=== PATIENT | male | born 1955 | race Caucasian/White ===

== ENCOUNTER 2022-02-22 09:47 | Outpatient (CLI) | payer MEDICARE, OTHER, SELFPAY ==
[2022-02-22 12:19] LABS: Chloride* 105 mmol/L (96-114)
[2022-02-22 12:20] LABS: Potassium* 5.1 mmol/L (3.6-5.1); Sodium* 140 mmol/L (135-149)
[2022-02-22 12:22] LABS: Cholesterol* 140 mg/dL (90-199); Creatinine* 1.2 mg/dL (0.5-1.5); Estimated Glomerular Filt Rate 66 ml/min
[2022-02-22 12:23] LABS: Blood Urea Nitrogen* 21 mg/dL (7-30); Calcium* 9.3 mg/dL (8.4-10.6); Carbon Dioxide* 31 mmol/L (20-32); Glucose* 108 mg/dL (60-115); Triglycerides* 166 mg/dL (40-149)
[2022-02-22 12:24] LABS: HDL Cholesterol* 42 mg/dL (>=40); LDL Cholesterol Calculated 65 mg/dL (<100)
[2022-02-22 12:54] LABS: PSA Screen* 0.99 ng/mL (0.10-4.00)
== END 2022-02-22 09:48 | disposition home or self-care (01) ==
PROVIDERS: PCP Family Medicine; Visit Provider Family Medicine
DX: E78.5 Hyperlipidemia, unspecified (principal); Z13.1 Encounter for screening for diabetes mellitus; Z12.5 Encounter for screening for malignant neoplasm of prostate
CPT/HCPCS: 80048; 80061; 84153

== ENCOUNTER 2022-04-09 08:34 | Outpatient (CLI) | payer MEDICARE, OTHER, SELFPAY | END 2022-04-09 08:35 | disposition home or self-care (01) | LOC: OP CLINIC 08:35 | PROVIDERS: PCP Family Medicine; Visit Provider Surgery | DX: Z12.11 Encounter for screening for malignant neoplasm of colon (principal); Z86.010 Personal history of colon polyps | CPT/HCPCS: 45378; J2250; J3010 ==

== ENCOUNTER 2023-04-01 08:21 | Outpatient (CLI) | payer MEDICARE, OTHER, SELFPAY | END 2023-04-01 08:22 | disposition home or self-care (01) | PROVIDERS: PCP Family Medicine; Visit Provider Family Medicine | DX: Z00.00 Encounter for general adult medical examination without abnormal findings (principal); E78.2 Mixed hyperlipidemia; Z13.1 Encounter for screening for diabetes mellitus | CPT/HCPCS: 80048; 80061 ==

== ENCOUNTER 2024-06-15 10:41 | Outpatient (CLI) | payer MEDICARE, OTHER, SELFPAY | END 2024-06-15 10:42 | disposition home or self-care (01) | PROVIDERS: PCP Family Medicine; Visit Provider Family Medicine | DX: Z00.00 Encounter for general adult medical examination without abnormal findings (principal); E78.5 Hyperlipidemia, unspecified; D68.51 Activated protein C resistance; R35.1 Nocturia; Z13.1 Encounter for screening for diabetes mellitus; Z12.5 Encounter for screening for malignant neoplasm of prostate | CPT/HCPCS: 80048; 80061; G0103 ==

== ENCOUNTER 2025-01-27 20:54 | Emergency (ER) | payer MEDICARE, OTHER, SELFPAY ==
[2025-01-27] VITALS (47 sets, daily range): BP systolic 117–159; BP diastolic 70–101; PULSE 54–71; RESP 8–26; TEMP 37; O2SAT 93–98; BMI 31.0
--- OUTSIDE RECORDS SUMMARY | 2025-01-27 20:56 | XMS_ITS | Clinical Summary ---
Author Organization [facility] Address [address] [place] [id number] Care Team Providers Care Tare Weigher Name Role Phone Javi Kapoor MD Primary Care Provider [phone] Allergies No known active allergies Medications aspirin enteric coated 81 mg tablet Take 1 tablet by mouth once daily with a meal. 0 1 Active naproxen (ALEVE) 220 mg tabletIndications:p ain Take 220 mg by mouth 2 times daily if needed. Indications: PAIN Active MULTIVITAMIN ORAL Take 1 Tab by mouth once daily. Active fish oil-omega-3 fatty acids (FISH OIL) 1,200-360 mg cap Take 1 capsule by mouth every morning. 0 2 Active famotidine (PEPCID) 20 mg tabletIndications:E sophageal spasm Take 1 tablet by mouth once daily. Please take when you are stressed? 0 2 Active atorvastatin (LIPITOR) 20 mg tabletIndications:M ixed hyperlipidemia TAKE 1 TABLET AT BEDTIME 90 tablet 0 4 Active Active Problems Problem Noted Date Diagnosed Date Sensorineural hearing loss, bilateral 05/06/2019 Gout, unspecified 08/26/2012 Overview (08/26/2012): Uric Acid at upper range of normal; suspect Gout. Aleve for flares; will consider Allopurinol if symptoms recur. Cold intolerance 08/26/2012 Esophageal spasm 05/13/2012 Overview (05/13/2012): Diagnosis of exclusion after Angiogram within normal limits 05/13/2012 LBBB (left bundle branch block) 01/30/2012 Overview (01/30/2012): Noted on recent EKG; negative nuclear stress test. 01/30/2012 Personal history of colonic polyps 08/14/2011 Overview (08/14/2011): Colonoscopy 07/2011 normal repeat in 5 years Factor V Leiden mutation 07/29/2011 Overview (07/29/2011): Diagnosed 06/2011. FH: factor V Leiden deficiency 07/25/2011 Impaired fasting glucose 08/26/2007 Lumbago 08/26/2007 Special screening for malignant neoplasm of pros barker 08/03/2007 Mixed hyperlipidemia 08/03/2007 Overview (01/30/2012): With essentially negative nuclear stress test, will attempt to manage Lipids with diet, exercise. Routine general medical exam ination at a health care facility 08/03/2007 Resolved Problems Problem Noted Date Diagnosed Date Resolved Date Acute coronary syndrome 05/10/201204/27 Immunizations Immunization Administration Dates Next Due COVID-19 vaccine (Moderna 100mcg/0.5mL) PFHONG 11/02/2020,10/06/2020 Influenza, IIV3 (Age >=3 years) 05/13/2012,07/25 Tdap 12/30/2007 Family History Medical History Relation Name Comments Hypertension Brother Thanh Cancer Father Nima Lung to Brain Heart Disease Father Nima Low Cholestero l despite eatin steak every time he could Hypertension Mother Taylor Other Mother Taylor Dementia Other Sister 6 Ani Factor II and V deficiencies Other Sister 7 Wilma Factor II defic iency Relation Name Status Comments Brother Thanh Alive Father Nima (Age 73) Ca Lungs Mother Taylor Alive Sister 1 Ani Eduardo Alive Sister 2 Wilma Alive Sister 3 Ksenia Alive Sister 4 Alan Alive Sister 5 Hortencia Alive Sister 6 Ani Sister 7 Wilma Social History Tobacco Use Types Packs/Day Years Used Date Smoking Tobacco: Never Smokeless Tobacco: Never Tobacco Cessation:Counseling Given: Yes Alcohol Use Standard Drinks/Week Comments Yes 1.7 (1 standard drink = 0.6 oz p ure alcohol) moderate on weekends only Sex and Gender Information Value Date Recorded Sex Assigned at Not on file Legal Sex Male 5:24 AM PUBLIC STENOGRAPHER Gender Identity Not on file Sexual Orientation Not on file Occupation Industry Job Start Date Job End Date [employer] Not on file Not on file Not on file Obstetrics History Last Filed Vital Signs Vital Sign Reading Time Taken Comments Blood Pressure 131/79 08/26/2012 11:01 AM PUBLIC STENOGRAPHER to wer Pulse 55 08/26/2012 11:01 AM PUBLIC STENOGRAPHER Temperature 36.8 C (98.3 F) 08/26/2012 11:01 AM PUBLIC STENOGRAPHER Respiratory Rate 12 05/11/2012 10:00 AM CDT Oxygen Saturation 98% 08/26/2012 11:01 AM PUBLIC STENOGRAPHER Inhaled Oxygen Concentration - - Weight 94.6 kg (208 lb 9.6 oz) 08/26/2012 11:01 AM PUBLIC STENOGRAPHER Height 177.8 cm (5' 10) 05/10/2012 1:50 PM CDT Body Mass Index 29.93 05/10/2012 1:50 PM CDT Plan of Treatment Health Maintenance Due Date Last Done Comments Depression screening for age 12+ 1966 BMI (ht and wt on same day) for age 18+ 1972 Hepatitis C screening for age 18-79 1972 Pneumococcal series for age 50+ (1 of 2 - PCV) 1973 Zoster (shingles) series for age 50+ (1 of 2) 2004 Colonoscopy through age 75 08/14/201608/14, 08/14/2011, 10/14/2007 Lipids for age 45-75 07/08/2017 07/08/2012, 05/11/2012, 01/07/2012, Additional history exists Tetanus booster 12/29/2017 12/30/2007 Medicare Wellness for age 65+ 10/11/2019 COVID-19 vaccine series ( season) 2024 04/18/2022, 05/24/2021, 11/02/2020, Additional history exists Influenza Vaccine (#1) 2025 05/13/2012, 2010 RSV vaccine for adults or (1 - 1-dose 75+ series) 2029 ([place]) Tdap Completed 12/30/2007 Hepatitis B series for 19+ Aged Out N o longer eligible based on patient's age to complete this topic Procedures Procedure Name Priority Date/Time Associated Diagnosis Comments LIPID PANEL W REFLEX MEASURED LDL Routine 07/08/2012 7:29 AM PUBLIC STENOGRAPHER Mixed hyperlipidemia from Last 3 Months or Most Recently Relevant to Health Maintenance Results * (ABNORMAL) LIPID PANEL W REFLEX MEASURED LDL (07/08/2012 7:29 AM PUBLIC STENOGRAPHER) CHOLESTEROL,TOTAL 142 100 - 199 mg/dL 07/08/2012 9:23 AM [facility] TRIGLYCERIDES 115 <150 mg/dL 07/08/2012 9:23 AM [facility] HDL CHOLESTEROL 39(L) >40 mg/dL 2 9:23 AM [facility] NON-HDL CHOLESTEROL 103 <145 mg/dl 07/08/2012 9:23 AM [facility] CHOL/HDL RATIO 3.64 <4.50 07/08/2012 9:23 AM [facility] LDL CHOLESTEROL 80 <=130 mg/dL 07/08/2012 9:23 AM [facility] PATIENT STATUS FASTING 07/08/2012 9:23 AM [facility] Blood specimen (specimen) BLOOD SPECIMEN / Unknown 07/08/2012 7:29 AM PUBLIC STENOGRAPHER 07/08/2012 7:29 AM [facility] Aba Contreras MD CHEMISTRY Final Result Performing Organization Address [facility]/State/[facility] Co de Phone Number [facility] [address] [place] [address] from Last 3 Months or Most Recently Relevant to Health Maintenance Insurance [place] [id number] Advance Directives * Full Code (Latest Code Status on File) Date Activated Date Inactivated Comments 05/10/2012 2:54 PM 05/11/2012 4:58 PM Care Teams Tare Weigher Relationship Specialty Start Date End Date Javi Kapoor MD PCP - General Family Practice 07/07/18
--- NOTE | 2025-01-27 21:12 | CRLHL7_ITS ---
For Patients: As a result of the Cures Act, medical imaging exams and procedure reports are released immediately into your electronic medical record. You may view this report before your referring provider. If you have questions, please contact your health care provider. INDICATION: Syncope TECHNIQUE: Chest radiograph 2 views COMPARISON: 02/28/2017, 05/10/2012 FINDINGS: The sensitivity and specificity of the exam are moderately limited by the patient`s body habitus. Mediastinum: The central pulmonary arteries are near the upper limits of normal in size. The heart silhouette is normal in size and morphology. Lung: Both lungs are unremarkable in appearance with small lung volumes. No sign of pleural effusion seen. No pneumothorax is identified. Bone and Soft tissue: There is a 7 mm density overlying the left apex without interval change. This corresponds to the bottle bone island in the anterior left 2nd rib as seen on prior CT. IMPRESSION: 1. No acute cardiopulmonary disease is seen. Dictated by Ronaldo Potter MD @ 01/27/2025 9:56:07 PM Dictated by: Ronaldo Potter MD @ 01/27/2025 21:56:52 (Electronically Signed)
[2025-01-27 21:20] LABS: Hematocrit 43.6 % (37.0-53.0); Hemoglobin* 14.9 gm/dL (13.5-17.5); Immature Granulocytes Abs Auto 0.02 K/uL (0.00-0.30); Immature Granulocytes Pct Auto 0.3 %; Lymphocytes Absolute Auto 2.50 K/uL (0.90-2.90); Mean Corpuscular HGB Conc 34 gm/dL (32-36); Mean Corpuscular Hemoglobin 31 pg (26-34); Mean Corpuscular Volume 89 fL (80-100); RDW Coefficient of Variation % 13.2 % (11.5-15.5); Red Blood Count 4.88 m/uL (4.30-5.90); White Blood Count* 6.75 K/uL (4.50-11.00)
--- NOTE | 2025-01-27 21:31 | ED_ITS ---
HPI - General Adult General Date Seen: 01/27/25 Chief complaint: Shortness of Breath/Dyspnea Stated complaint: Breathing difficulties, tingling hands Time Seen by Provider: 01/27/25 20:58 Source: patient Mode of arrival: ambulatory Limitations: no limitations History of Present Illness HPI narrative: Patient is a 69-year-old male presenting to the emergency department for shortness of breath and a syncopal episode. He is here with his . She states roughly 15 to 20 minute prior to arrival the patient had episode where he was sitting in his chair insert only flung his head backwards and put his hand to his left upper chest. This went on for about 10-20 seconds and since she believes he lost consciousness. When he came back to he felt very lightheaded and this lasted for about another 10 minutes. He was answering all questions appropriately though at that time. He was feeling short of breath. He still feels mildly short of breath but it is improved. He denies any chest pain at any point throughout all of this. Did not feel lightheaded prior to the episode. No history of this happening before. After he woke back up he started noticing some tingling sensation of his hands and his right face was starting to feel numb and then his left face began to feel numb. He does state the numbness and tingling has since fully resolved. Denies ever having symptoms like this before. No history of blood clots. Denies abdominal pain, weakness, headache, vision changes, diarrhea, constipation. No other concerns noted Related Data Home Medications ?Medication ?Instructions ?Recorded ?Confirmed aspirin 81 mg tablet,delayed 81 mg PO DAILY 04/01/23 0 01/27/25 release multivitamin with minerals 1 tab PO QDAY 04/01/2305/28 (Multiple Vitamin-Minerals tablet) Previous Rx's ?Medication ?Instructions ?Recorded atorvastatin 20 mg tablet See Rx Instructions .Route 1 08/15/23 .COMPLEX #90 tabs allopurinol 100 mg tablet 100 mg PO QDAY #90 tabs 09/21 Allergies Allergy/AdvReac Type Severity Reaction Status Date / Time No Known Allergies Allergy Verified 01/27/25 21:11 Review of Systems Status of ROS: Reports: 10 or more systems reviewed and unremarkable except as noted in History and below [facility] Medical History History of coronary angiogram ?Z98.890 - Other specified postprocedural states (ICD-10) Surgical History H/O umbilical hernia repair ?Z98.890 - Other specified postprocedural states (ICD-10) ?Z87.19 - Personal history of other diseases of the digestive system (ICD-10) S/P bilateral inguinal hernia repair ?Z98.890 - Other specified postprocedural states (ICD-10) ?Z87.19 - Personal history of other diseases of the digestive system (ICD-10) Status post laparoscopic cholecystectomy ?Z90.49 - Acquired absence of other specified parts of digestive tract (ICD- 10) Status post appendectomy ?Z90.49 - Acquired absence of other specified parts of digestive tract (ICD- 10) Social History What is your current living situation?: I presently have a place to live Problems where you live: no known problems In the past 12 months, utilities in danger of being shut off: no In past 12 months, lack of transportation kept you from medical appts, meetings, work, or getting things needed for daily living: no In the past 12 mos, have been you worried that your food would run out before you had money to buy more?: never true In the past 12 mos, the food you bought just didn't last and you didn't have money to buy more?: never true Smoking Status: Never smoker How often does anyone, including family, friends and others, physically hurt you : never How often does anyone, including family, friends and others, insult or talk down to you: never How often does anyone, including family, friends and others, threaten you with harm: never How often does anyone, including family, friends and others, scream or curse at you: never Exam Narrative: Exam Narrative: Const: Well-nourished, Well-developed, in mild distress Eyes: PERRL, no conjunctival injection, and symmetrical lids HENT: Atraumatic external nose and ears. Moist mucous membranes. Neck: Symmetric, trachea midline, No thyromegaly. CVS: RRR, No murmurs or gallops. Peripheral pulses 2+ and equal in all extremities RESP: Unlabored respiratory effort. Clear to auscultation bilaterally. GI: Nontender/Nondistended, No rebound or guarding. MSK:Extremities w/o deformity, Normal Active ROM Skin: Warm, Dry. No rashes or lesions. Neuro: Normal Muscle tone, No focal neurological deficits. NIH stroke scale 0 Psych: Awake, Alert, & Oriented x3. Appropriate mood and affect. Const: Vital Signs, click to edit/add: Vital Signs - 24 hr 01/27/25 21:01 01/27/25 21:02 01/27/25 21:04 Temperature 98.6 F Pulse Rate Pulse Rate [Pulse Oximeter] 66 Pulse Rate [orthos tatic lying] Pulse Rate [orthos tatic sitting] Pulse Rate [orthos tatic standing] Respiratory Rate 26 H 14 12 Blood Pressure 159/101 H Blood Pressure [or thostatic lying] Blood Pressure [or thostatic sitting] Blood Pressure [or thostatic standing ] Pulse Oximetry 95 Oxygen Delivery [facility] Room Air 01/27/25 21:10 01/27/25 21:11 01/27/25 21:15 Temperature Pulse Rate 71 62 Pulse Rate [Pulse Oximeter] Pulse Rate [orthos tatic lying] Pulse Rate [orthos tatic sitting] Pulse Rate [orthos tatic standing] Respiratory Rate 13 10 L Blood Pressure 146/100 H Blood Pressure [or thostatic lying] Blood Pressure [or thostatic sitting] Blood Pressure [or thostatic standing ] Pulse Oximetry 94 95 [facility] 21:20 01/27/25 21:22 01/27/25 21:33 Temperature Pulse Rate 58 L 66 Pulse Rate [Pulse Oximeter] Pulse Rate [orthos tatic lying] Pulse Rate [orthos tatic sitting] Pulse Rate [orthos tatic standing] Respiratory Rate 11 L Blood Pressure 132/81 Blood Pressure [or thostatic lying] Blood Pressure [or thostatic sitting] Blood Pressure [or thostatic standing ] Pulse Oximetry 96 96 95 [facility] 01/27/25 21:34 01/27/25 21:40 01/27/25 21:41 Temperature Pulse Rate 62 64 Pulse Rate [Pulse Oximeter] Pulse Rate [orthos tatic lying] Pulse Rate [orthos tatic sitting] Pulse Rate [orthos tatic standing] Respiratory Rate Blood Pressure 140/77 H 129/72 Blood Pressure [or thostatic lying] Blood Pressure [or thostatic sitting] Blood Pressure [or thostatic standing ] Pulse Oximetry 95 95 94 Oxygen Delivery Me thod 01/27/25 21:45 01/27/25 21:50 01/27/25 21:51 Temperature Pulse Rate 62 61 Pulse Rate [Pulse Oximeter] Pulse Rate [orthos tatic lying] Pulse Rate [orthos tatic sitting] Pulse Rate [orthos tatic standing] Respiratory Rate Blood Pressure 127/72 Blood Pressure [or thostatic lying] Blood Pressure [or thostatic sitting] Blood Pressure [or thostatic standing ] Pulse Oximetry 95 95 95 Oxygen Delivery Ms thod 01/27/25 22:00 01/27/25 22:01 01/27/25 22:02 Temperature Pulse Rate 55 L 59 L 57 L Pulse Rate [Pulse Oximeter] Pulse Rate [orthos tatic lying] Pulse Rate [orthos tatic sitting] Pulse Rate [orthos tatic standing] Respiratory Rate Blood Pressure 133/76 Blood Pressure [or thostatic lying] Blood Pressure [or thostatic sitting] Blood Pressure [or thostatic standing ] Pulse Oximetry 96 93 96 Oxygen Delivery Ms thod 01/27/25 22:10 01/27/25 22:11 01/27/25 22:12 Temperature Pulse Rate 60 54 L Pulse Rate [Pulse Oximeter] Pulse Rate [orthos tatic lying] Pulse Rate [orthos tatic sitting] Pulse Rate [orthos tatic standing] Respiratory Rate Blood Pressure 132/70 Blood Pressure [or thostatic lying] Blood Pressure [or thostatic sitting] Blood Pressure [or thostatic standing ] Pulse Oximetry 96 95 97 Oxygen Delivery Me thod 01/27/25 22:15 01/27/25 22:20 01/27/25 22:21 Temperature Pulse Rate 59 L 60 Pulse Rate [Pulse Oximeter] Pulse Rate [orthos tatic lying] Pulse Rate [orthos tatic sitting] Pulse Rate [orthos tatic standing] Respiratory Rate 10 L 11 L Blood Pressure 133/79 Blood Pressure [or thostatic lying] Blood Pressure [or thostatic sitting] Blood Pressure [or thostatic standing ] Pulse Oximetry 96 97 98 Oxygen Delivery Ms thod 01/27/25 22:22 01/27/25 22:30 01/27/25 22:31 Temperature Pulse Rate 61 57 L 60 Pulse Rate [Pulse Oximeter] Pulse Rate [orthos tatic lying] Pulse Rate [orthos tatic sitting] Pulse Rate [orthos tatic standing] Respiratory Rate 10 L 13 Blood Pressure 131/79 Blood Pressure [or thostatic lying] Blood Pressure [or thostatic sitting] Blood Pressure [or thostatic standing ] Pulse Oximetry 97 95 94 Oxygen Delivery Ms thod 01/27/25 22:38 01/27/25 22:40 01/27/25 22:40 Temperature Pulse Rate 58 L 68 Pulse Rate [Pulse Oximeter] Pulse Rate [orthos tatic lying] 58 L Pulse Rate [orthos tatic sitting] 57 L Pulse Rate [orthos tatic standing] 59 L Respiratory Rate 24 Blood Pressure 133/74 137/78 Blood Pressure [or thostatic lying] 133/74 Blood Pressure [or thostatic sitting] 137/78 Blood Pressure [or thostatic standing ] 158/93 H Pulse Oximetry 96 96 Oxygen Delivery Ms thod 01/27/25 22:41 01/27/25 22:42 01/27/25 22:45 Temperature Pulse Rate 60 63 57 L Pulse Rate [Pulse Oximeter] Pulse Rate [orthos tatic lying] Pulse Rate [orthos tatic sitting] Pulse Rate [orthos tatic standing] Respiratory Rate 10 L 12 13 Blood Pressure 158/93 H Blood Pressure [or thostatic lying] Blood Pressure [or thostatic sitting] Blood Pressure [or thostatic standing ] Pulse Oximetry 96 96 97 [facility] 01/27/25 22:50 01/27/25 22:51 01/27/25 23:00 Temperature Pulse Rate 58 L Pulse Rate [Pulse Oximeter] Pulse Rate [orthos tatic lying] Pulse Rate [orthos tatic sitting] Pulse Rate [orthos tatic standing] Respiratory Rate 12 14 12 Blood Pressure 130/76 Blood Pressure [or thostatic lying] Blood Pressure [or thostatic sitting] Blood Pressure [or thostatic standing ] Pulse Oximetry 95 95 97 Oxygen Delivery Ms thod 01/27/25 23:01 01/27/25 23:10 01/27/25 23:11 Temperature Pulse Rate Pulse Rate [Pulse Oximeter] Pulse Rate [orthos tatic lying] Pulse Rate [orthos tatic sitting] Pulse Rate [orthos tatic standing] Respiratory Rate 12 12 10 L Blood Pressure Blood Pressure [or thostatic lying] Blood Pressure [or thostatic sitting] Blood Pressure [or thostatic standing ] Pulse Oximetry 96 96 94 Oxygen Delivery Me thod 01/27/25 23:20 01/27/25 23:21 Temperature Pulse Rate Pulse Rate [Pulse Oximeter] Pulse Rate [orthos tatic lying] Pulse Rate [orthos tatic sitting] Pulse Rate [orthos tatic standing] Respiratory Rate 14 12 Blood Pressure Blood Pressure [or thostatic lying] Blood Pressure [or thostatic sitting] Blood Pressure [or thostatic standing ] Pulse Oximetry 96 96 Oxygen Delivery Me thod Course Vital Signs Vital signs: Initial Vital Signs Temperature 98.6 F 01/27/25 21:01 Temperature Source Temporal Artery Scan 01/27/25 21:01 Pulse Rate 66 01/27/25 21:01 Pulse Rhythm Regular 01/27/25 21:01 Respiratory Rate 26 H 01/27/25 21:01 Pulse Oximetry 95 01/27/25 21:01 Oxygen Delivery Method Room Air 01/27/25 21:01 Vital Signs Temperature 98.6 F 01/27/25 21:01 Pulse Rate 66 01/27/25 21:01 Respiratory Rate 26 H 01/27/25 21:01 Pulse Oximetry 95 01/27/25 21:01 Oxygen Delivery Method Room Air 01/27/25 21:01 Temperature 98.6 F 01/27/25 21:01 Pulse Rate 58 L 01/27/25 22:51 Respiratory Rate 12 01/27/25 23:21 Blood Pressure 130/76 01/27/25 22:51 Pulse Oximetry 96 01/27/25 23:21 Oxygen Delivery Method Room Air 01/27/25 21:01 Medications Administered Medications: Discontinued Medications Generic Name Dose Route Start Last Admin Trade Name Freq PRN Reason Stop Dose Admin Sodium Chloride 1,000 mls @ 1,000 mls/hr 01/27/25 22:52 01/27/25 22:58 0.9 % Sodium Chloride 1000 Ml IV 01/27/25 23:51 1,000 mls/hr .Q1H SUMIT Administration Medical Decision Making MDM Narrative Medical decision making narrative: Patient is a 69-year-old male with the history of factor 5 Leiden presenting for an episode of syncope. Stroke code was called by nursing staff due to the hand tingling. The symptoms have since resolved. I do not believe this is a stroke as he had bilateral hand tingling and facial numbness. This is a very unlikely to be from a single stroke and would require multiple strokes in the exact same spots of the brain. It does sound like he had syncopal episode. Most likely tingling sensation came from hyperventilation. The numbness and tingling are fully resolved now. Differential includes PE, cardiac abnormalities, electrolyte abnormalities, fainting. Will do a chest x-ray, viral swabs, D- dimer, magnesium, BNP, BMP, CBC, troponin, EKG. Lab work returned showing no acute concerning abnormalities. EKG shows a left bundle branch block and per report this was normal for him. Troponin within normal limits but I will repeat this. Viral swabs are negative. CBC, BMP, magnesium, BNP showed no concerning findings. His D-dimer is 0.56 but age adjusted is within normal limits. Based on my research factor 5 Leiden does not affect the D-dimer and we can use this to safely rule out a blood clot. We did do orthostatic blood pressures and they were normal but he did get lightheaded when he stood up. Went to go speak to them and his does mention he was working outside all day and she is concerned he was getting dehydrated. He states he drink 2 large bottles of water prior to coming to the emergency department. Did give him a L of fluids. After L of fluids his symptoms resolved and he is feeling much better. Repeat troponin within normal limits. At this time is syncope easily could have been from dehydration but I do think a would benefit from a Zio patch. This was ordered. They are agreeable to this plan. There is safe for discharge. Lab Data Labs: Lab Results 01/27/25 01/27/25 01/27/25 Range/Units 21:00 21:12 21:26 WBC 6.75 (4.50-11.00) K/uL RBC 4.88 (4.30-5.90) m/uL Hgb 14.9 (13.5-17.5) gm/dL Hct 43.6 (37.0-53.0) % MCV 89 (80-100) fL MCH 31 (26-34) pg MCHC 34 (32-36) gm/dL RDW Coeff of Laure 13.2 (11.5-15.5) % Plt Count 180 (140-440) K/uL Neut % (Auto) 51.9 (42.0-72.0) % Lymph % (Auto) 37.0 (20-44) % [place] % (Auto) 6.8 (0.0-11.0) % Eos % (Auto) 3.6 (0.0-7.0) % Baso % (Auto) 0.4 (0.0-3.0) % Neut # (Auto) 3.50 (1.7-7.0) K/uL Lymph # (Auto) 2.50 (0.90-2.90) K/uL [place] # (Auto) 0.50 (0.00-0.90) K/UL Eos # (Auto) 0.24 (0.00-0.50) K/uL Baso # (Auto) 0.03 (0.00-0.30) K/uL Abs Immat Gran (auto) 0.02 (0.00-0.30) K/uL Imm/Tot Granulo (auto) 0.3 % D-Dimer Quant (PE/DVT) 0.56 H (0.00-0.50) ug/ml Sodium 140 (135-149) mmol/L Potassium 4.1 (3.6-5.1) mmol/L Chloride 108 (96-114) mmol/L Carbon Dioxide 25 (20-32) mmol/L Anion Gap 7 (7-15) mEq/L BUN 23 (7-30) mg/dL Creatinine 1.2 (0.5-1.5) mg/dL Estimated Creat Clear 57.28 Estimated GFR 65 ml/min Glucose 109 (60-115) mg/dL Calcium 9.0 (8.4-10.6) mg/dL Magnesium 2.1 (1.5-2.6) mg/dL Troponin I < 0.01 (0.01-0.04) ng/mL NT-Pro-B Natriuret Pep < 20 (See Note) pg/mL SARS-CoV-2 (PCR) Negative SARS-CoV-2 (Negative) Influenza Type A (PCR) Negative PCR FLU A (Negative) Influenza Type B (PCR) Negative PCR FLU B (Negative) RSV (PCR) Negative PCR RSV (Negative) POC Troponin I 0.01 (0.01-0.04) ng/ml Imaging Data Chest x-ray: Attestation: I have reviewed the pertinent imaging results. Radiologist's impression: 1. No acute cardiopulmonary disease is seen. Dictated by Ronaldo Potter MD @ 01/27/2025 9:56:07 PM ECG Data Attestation: I personally reviewed and interpreted this ECG as follows: Prior ECG tracings: not available for review Interpretation: Normal sinus rhythm with a rate of 68 beats per minute, left axis deviation, left bundle branch block, normal FL interval, no ST or T-wave abnormalities Discharge Plan Discharge Clinical Impression: Syncope Patient Disposition: Home, Self-Care Condition: Stable Instructions: Syncope (ED) Additional Instructions: I believe You suffered from an episode of syncope, also known as fainting. Is very possible that this was due to dehydration from working outside in the heat all day but I will have you wear a heart monitor for the next 2 weeks to make sure there is no underlying heart arrhythmias. I do recommend follow-up with your primary care provider. Return to emergency department for new or worsening symptoms Prescriptions: No Action atorvastatin 20 mg tablet See Rx Instructions .ROUTE .COMPLEX Qty: 90 3RF Dose Instruction: TAKE ONE TABLET BY MOUTH EVERY EVENING Rx Instructions: TAKE ONE TABLET BY MOUTH EVERY EVENING aspirin 81 mg tablet,delayed release (DR/EC) 81 mg PO DAILY Multiple Vitamin-Minerals Tablet 1 tab PO QDAY allopurinol 100 mg tablet 100 mg PO QDAY Qty: 90 2RF Follow Up/Referrals: Javi Kapoor MD [Primary Care Provider, Family Practice] Stand Alone Forms: [employer] Info Instructions
[2025-01-27 21:36] LABS: Troponin, Point-of-Care* 0.01 ng/ml (0.01-0.04)
[2025-01-27 21:37] LABS: Slide Review Reflex No
[2025-01-27 22:12] LABS: PCR FLU A Negative PCR FLU A (Negative); PCR FLU B Negative PCR FLU B (Negative); PCR RSV Negative PCR RSV (Negative); SARS PCR* Negative SARS-CoV-2 (Negative)
[2025-01-27 22:36] LABS: D Dimer Quantitative* 0.56 ug/ml (0.00-0.50)
[2025-01-27 22:57] LABS: Chloride* 108 mmol/L (96-114); Sodium* 140 mmol/L (135-149)
[2025-01-27 22:58] LABS: Potassium* 4.1 mmol/L (3.6-5.1)
[2025-01-27 23:00] LABS: Blood Urea Nitrogen* 23 mg/dL (7-30); Creatinine* 1.2 mg/dL (0.5-1.5); Est. Creatinine Clearance* 57.28; Estimated Glomerular Filt Rate 65 ml/min
[2025-01-27 23:01] LABS: Anion Gap 7 mEq/L (7-15); Calcium* 9.0 mg/dL (8.4-10.6); Carbon Dioxide* 25 mmol/L (20-32); Glucose* 109 mg/dL (60-115)
[2025-01-27 23:20] LABS: NT Pro B Type NatriureticPept* < 20 pg/mL (See Note)
== END 2025-01-28 00:08 | disposition home or self-care (01) ==
PROVIDERS: Emergency Provider Student in an Organized Health Care Education/Training Program; PCP Family Medicine
DX: R55 Syncope and collapse (principal); R06.02 Shortness of breath; R20.2 Paresthesia of skin; R20.0 Anesthesia of skin
CPT/HCPCS: 36415; 71046; 80048; 83735; 83880; 84484; 85025; 85379; 87631; 93005; 93246; 99284; 99285; 99291; J7030

== ENCOUNTER 2025-06-24 17:41 | Observation (INO) | payer MEDICARE, OTHER, SELFPAY ==
[2025-06-24] VITALS (22 sets, daily range): BP systolic 118–167; BP diastolic 62–107; PULSE 69–90; RESP 5–18; TEMP 36.5–36.8; O2SAT 95–99; BMI 31.9; BMI 33.9; BMI 34.0
--- OUTSIDE RECORDS SUMMARY | 2025-06-24 17:43 | XMS_ITS | Clinical Summary ---
Author Organization [facility] Address [address] [place] [id number] Care Team Providers Care Vault Service Mechanic Name Role Phone Javi Kapoor MD Primary Care Provider [phone] Allergies No known active allergies Medications aspirin [...] Date Resolved Date Acute coronary syndrome 05/10/201204/27 Encounters Date Type Department Care Team Description 04/04/2025 Telephone [facility] [address] [place] [address] Integration Aide, Son[facility] Hearing Aid from Last 3 Months Immunizations Immunization Administration Dates Next Due COVID-19 [...] Lungs Mother Taylor Alive Sister 1 Ani Willows Alive Sister 2 Wilma Alive Sister 3 [...] on file Legal Sex Male 5:24 AM [employer]FORMER BU[employer]DER Gender Identity Not on file Sexual Orientation Not on file Occupation Industry Job Start Date Job End Date [employer] Not on file Not on file Not on file Obstetrics History Last Filed Vital Signs Vital Sign Reading Time Taken Comments Blood Pressure 131/79 08/26/2012 11:01 AM TRANSFORMER BUILDER to wer Pulse 55 08/26/2012 11:01 AM [employer] BU[employer]DER Temperature 36.8 C (98.3 F) 08/26/2012 11:01 AM [employer]FORMER BU[employer]DER Respiratory Rate 12 05/11/2012 10:00 AM CDT Oxygen Saturation 98% 08/26/2012 11:01 AM TR[employer]FORMER BU[employer]DER Inhaled Oxygen Concentration - - Weight 94.6 kg (208 lb 9.6 oz) 08/26/2012 11:01 AM [employer] BU[employer]DER Height 177.8 cm (5' 10) 05/10/2012 1:50 [...] 12/30/2007 Medicare Wellness for age 65+ 10/11/2019 Influenza Vaccine (#1) 2025 05/13/2012, 2010 RSV vaccine for adults or (1 - 1-dose 75+ series) 2029 Hepatitis B series for 19+ Aged Out N o longer eligible based on patient's age to complete this topic Procedures Procedure Name Priority Date/Time Associated Diagnosis Comments LIPID PANEL W REFLEX MEASURED LDL Routine 07/08/2012 7:29 AM [employer] BU[employer]DER Mixed hyperlipidemia from Last 3 Months or Most Recently Relevant to Health Maintenance Results * (ABNORMAL) LIPID PANEL W REFLEX MEASURED LDL (07/08/2012 7:29 AM TR[employer]FORMER BUILDER) CHOLESTEROL,TOTAL 142 100 - 199 mg/dL 07/08/2012 9:[address] [facility] TRIGLYCERIDES 115 <150 mg/dL 07/08/2012 9:[address] [facility] HDL CHOLESTEROL 39(L) >40 mg/dL 2 9:[address] [facility] NON-HDL CHOLESTEROL 103 <145 mg/dl 07/08/2012 9:[address] [facility] CHOL/HDL RATIO 3.64 <4.50 07/08/2012 9:[address] [facility] LDL CHOLESTEROL 80 <=130 mg/dL 07/08/2012 9:[address] [facility] PATIENT STATUS FASTING 07/08/2012 9:[address] [facility] Blood specimen (specimen) BLOOD SPECIMEN / Unknown 07/08/2012 7:29 AM TR[employer]FORMER BUILDER 07/08/2012 7:29 AM [facility] Aba Contreras MD CHEMISTRY Final Result [facility] [address] [place] [address] from Last 3 Months or Most Recently Relevant to Health Maintenance Insurance [place] [address] Advance Directives * Full Code (Latest Code Status on File) Date Activated Date Inactivated Comments 05/10/2012 2:54 PM 05/11/2012 4:58 PM Care Teams Vault Service Mechanic Relationship Specialty Start Date End Date Javi Kapoor MD PCP - General Family Practice 07/07/18
--- NOTE | 2025-06-24 18:00 | CRLHL7_ITS ---
For Patients: As a result of the Century Cures Act, medical imaging exams and procedure reports are released immediately into your electronic medical record. You may view this report before your referring provider. If you have questions, please contact your health care provider. INDICATION: Acute stroke. TECHNIQUE: CTA head using intravenous contrast with bolus tracking, 3D angiographic rendering using maximum intensity projection (MIP) and images permanently archived. CTA neck using intravenous contrast with bolus tracking, 3D angiographic rendering using maximum intensity projection (MIP) and images permanently archived. FINDINGS: CTA head: There is scattered intracranial atherosclerotic disease. There is normal opacification of the intracranial vasculature. There is no large vessel occlusion or significant intracranial stenosis. No aneurysm is identified. CTA neck: There is carotid atherosclerosis bilaterally. There is no significant carotid artery stenosis or dissection. There is no significant vertebral artery stenosis or dissection. Degenerative changes are noted in the cervical spine. IMPRESSION: No acute intracranial abnormality at CTA. No significant carotid or vertebral artery stenosis or dissection. Please note that all CT scans at this facility use dose modulation, iterative reconstruction, and/or weight-based dosing when appropriate to reduce radiation dose to as low as reasonably achievable. Dictated by Gabino Leigh MD @ 06/25/2025 12:29:07 PM (Electronically Signed)
--- NOTE | 2025-06-24 18:00 | CRLHL7_ITS ---
For Patients: As a result of the Century Cures Act, medical imaging exams and procedure reports are released immediately into your electronic medical record. You may view this report before your referring provider. If you have questions, please contact your health care provider. INDICATION: Fall, syncope, and shaking TECHNIQUE: Noncontrast axial CT of the head. Coronal and sagittal reformats. Bone and soft tissue algorithms. COMPARISON: None. FINDINGS: The ventricles and cortical sulci appear age-appropriate. No midline shift or mass effect. No acute intracranial hemorrhage or extra-axial fluid collection. Simon-white matter differentiation is grossly maintained. White matter attenuation is within normal limits. Calcific intracranial atherosclerotic plaquing. Midline structures are unremarkable. The calvarium appears grossly intact. Lobulated mucosal thickening throughout the left nasal cavity, suspicious for polyps. Clear mastoid air cells. Unremarkable orbits. IMPRESSION: 1. No CT evidence of acute intracranial abnormality. 2. Lobulated mucosal thickening throughout the left nasal cavity, potentially polyps. Please note that all CT scans at this facility use dose modulation, iterative reconstruction, and/or weight-based dosing when appropriate to reduce radiation dose to as low as reasonably achievable. Dictated by Morenita Magallanes MD @ 06/24/2025 6:29:50 PM (Electronically Signed)
--- NOTE | 2025-06-24 18:02 | ED.GENADULT ---
HPI - General Adult General Chief complaint: Syncope/Fainted Stated complaint: Syncope, fall, shaking Time Seen by Provider: 06/24/25 17:54 Source: patient and family Mode of arrival: ambulatory Limitations: no limitations History of Present Illness HPI narrative: 69-year-old male presenting today after syncopal episode at home. Patient was walking into his daughter's home taking office coat when his and daughter all the sudden heard a crash in the got to him in the other room he was unconscious on the ground making snoring noises. He was unconscious for about a minute and when his daughter shook him he did wake up. He has been quite confused ever since. Did hit his head on the ground. Patient is not on any blood thinners. He has chronic neck pain, denies any new neck pain. He denies having headache. His states that he asked where they were going on the way up here, more than once. He forgot that yesterday was Thanksgiving. This is not his baseline according to his . He is slow to respond, but no slurred speech according to his . He is able to ambulate without assistance. states that he has passed out 2 times in the past. Last time was in January. He did have a 5 day Holter monitor at that time which was unremarkable. Another episode in March where he passed out while he was sitting down on the couch. Was unconscious for a couple minutes before waking up again. No recent illness. No vomiting. Stroke code was called upon arrival. Related Data Home Medications ?Medication ?Instructions ?Recorded ?Confirmed aspirin 81 mg tablet,delayed 81 mg PO DAILY 04/01/23 01/27/25 release multivitamin with minerals 1 tab PO QDAY 04/01/23 06/15/24 (Multiple Vitamin-Minerals tablet) Previous Rx's ?Medication ?Instructions ?Recorded atorvastatin 20 mg tablet See Rx Instructions .Route 06/15/24 .COMPLEX #90 tabs allopurinol 100 mg tablet 100 mg PO QDAY #90 tabs 07/29/24 Allergies Allergy/AdvReac Type Severity Reaction Status Date / Time No Known Allergies Allergy Verified 01/27/25 21:11 Review of Systems Status of ROS: Reports: 10 or more systems reviewed and unremarkable except as noted in History and below [facility] Medical History History of coronary angiogram ?Z98.890 - Other specified postprocedural states (ICD-10) Surgical History H/O umbilical hernia repair ?Z98.890 - Other specified postprocedural states (ICD-10) ?Z87.19 - Personal history of other diseases of the digestive system (ICD-10) S/P bilateral inguinal hernia repair ?Z98.890 - Other specified postprocedural states (ICD-10) ?Z87.19 - Personal history of other diseases of the digestive system (ICD-10) Status post laparoscopic cholecystectomy ?Z90.49 - Acquired absence of other specified parts of digestive tract (ICD-10) Status post appendectomy ?Z90.49 - Acquired absence of other specified parts of digestive tract (ICD-10) Social History What is your current living situation?: I presently have a place to live Problems where you live: no known problems In the past 12 months, utilities in danger of being shut off: no In past 12 months, lack of transportation kept you from medical appts, meetings, work, or getting things needed for daily living: no In the past 12 mos, have been you worried that your food would run out before you had money to buy more?: never true In the past 12 mos, the food you bought just didn't last and you didn't have money to buy more?: never true Smoking Status: Never smoker How often does anyone, including family, friends and others, physically hurt you: never How often does anyone, including family, friends and others, insult or talk down to you: never How often does anyone, including family, friends and others, threaten you with harm: never How often does anyone, including family, friends and others, scream or curse at you: never Exam Narrative: Exam Narrative: Overweight, well-developed patient in no acute distress. Alert and oriented x3. Answers questions appropriately but slowly. Patient speaks in full sentences without needing to catch his breath. Speech is not slurred or pressured. No garbled speech, speech is not slurred. HEENT: Normocephalic atraumatic. Pupils are equally round reactive to light. Extraocular muscles are intact. Conjunctivae are moist without any icterus noted. Moist mucous membranes. Posterior pharynx is normal. Neck is soft. No tenderness of the cervical spine. No obvious hematoma of the scalp, no lacerations. Cardiovascular: Heart is regular rate and rhythm S1 and S2 are present without any murmurs. Lungs: Clear to auscultation bilaterally no wheezes rhonchi or rales are appreciated. Patient takes deep breaths without any discomfort. Abdomen: Soft and nontender nondistended with normal bowel sounds. Extremities: Bilateral lower extremities are without edema. Skin: Well perfused. Strength is 5/5 of the upper and lower extremities, both distal and proximal muscle groups. Hand dairy lab technician is normal and symmetric. Reflexes are 2+ and symmetric at the knees. Cranial nerves 3-12 are normal. There is no nystagmus either horizontally or vertically. Normal facial symmetry. Const: Vital Signs, click to edit/add: Vital Signs - 24 hr 06/24/25 17:50 06/24/25 18:00 Temperature 98.0 F Pulse Rate [Pulse Oximeter] 70 Respiratory Rate 16 Blood Pressure [Ri ght Upper Arm] 163/107 H Pulse Oximetry 98 96 Oxygen Delivery Me thod Room Air Course Course ED Course: Upon arrival patient had a physical examination and proceeded to CT scan. While transferring to get his CT scan patient had an episode where he became unresponsive but still awake. Eyes were open but he was not responding to staff. By this lasted less than a minute have for patient became aware of his surroundings again. However a neuro check immediately after this episode reveal that the patient was no longer alert oriented x3-did not know where he was, or the date. A few minutes later this cleared up he became alert oriented x3 once again. EKG, read by me, shows normal sinus rhythm with premature atrial complexes, left axis deviation, left bundle-branch block, ventricular rate is 80. Head CT was unremarkable. Blood work unremarkable. Head and neck CTA preliminary reports did not show any abnormalities. I did review imaging with Dr. Edwards, who also agreed that there was no abnormalities noted. Dr. Edwards recommended a loading dose of Keppra 1000mg and 500 mg b.i.d. going forward for potential seizures. Recommended admission for observation and MRI in the morning if possible. Neurology will continue to follow patient via telehealth. Vital Signs Vital signs: Initial Vital Signs Temperature 98.0 F 06/24/25 17:50 Temperature Source Temporal Artery Scan 06/24/25 17:50 Pulse Rate 70 06/24/25 17:50 Respiratory Rate 16 06/24/25 17:50 Blood Pressure 163/107 H 06/24/25 17:50 Blood Pressure Mean 125 H 06/24/25 17:50 Blood Pressure Position Supine 06/24/25 17:50 Pulse Oximetry 98 06/24/25 17:50 Oxygen Delivery Method Room Air 06/24/25 17:50 Vital Signs Temperature 98.0 F 06/24/25 17:50 Pulse Rate 70 06/24/25 17:50 Respiratory Rate 16 06/24/25 17:50 Blood Pressure 163/107 H 06/24/25 17:50 Pulse Oximetry 98 06/24/25 17:50 Oxygen Delivery Method Room Air 06/24/25 17:50 Temperature 98.0 F 06/24/25 17:50 Pulse Rate 70 06/24/25 17:50 Respiratory Rate 16 06/24/25 17:50 Blood Pressure 163/107 H 06/24/25 17:50 Pulse Oximetry 96 06/24/25 18:00 Oxygen Delivery Method Room Air 06/24/25 17:50 Medical Decision Making MDM Narrative Medical decision making narrative: 69-year-old male with syncopal episode. Differential diagnosis is broad including cardiac arrhythmia, TIA, seizure disorder. Patient will be admitted for further management. Lab Data Lab results reviewed: Yes I reviewed the patient's lab results Labs: Lab Results 06/24/25 06/24/25 Range/Units 18:00 18:01 WBC 7.13 (4.50-11.00) K/uL RBC 4.78 (4.30-5.90) m/uL Hgb 14.5 (13.5-17.5) gm/dL Hct 42.8 (37.0-53.0) % MCV 90 (80-100) fL MCH 30 (26-34) pg MCHC 34 (32-36) gm/dL RDW Coeff of Laure 12.8 (11.5-15.5) % Plt Count 184 (140-440) K/uL Neut % (Auto) 57.7 (42.0-72.0) % Lymph % (Auto) 32.3 (20-44) % Simpson % (Auto) 6.0 (0.0-11.0) % Eos % (Auto) 3.2 (0.0-7.0) % Baso % (Auto) 0.4 (0.0-3.0) % Neut # (Auto) 4.11 (1.7-7.0) K/uL Lymph # (Auto) 2.30 (0.90-2.90) K/uL Simpson # (Auto) 0.40 (0.00-0.90) K/UL Eos # (Auto) 0.23 (0.00-0.50) K/uL Baso # (Auto) 0.03 (0.00-0.30) K/uL Abs Immat Gran (auto) 0.03 (0.00-0.30) K/uL Imm/Tot Granulo (auto) 0.4 % Sodium 139 (135-149) mmol/L Potassium 4.4 (3.6-5.1) mmol/L Chloride 100 (96-114) mmol/L Carbon Dioxide 27 (20-32) mmol/L Anion Gap 12 (7-15) mEq/L BUN 22 (7-30) mg/dL Creatinine 1.3 (0.5-1.5) mg/dL Estimated Creat Clear 51.15 Estimated GFR 59 ml/min Glucose 95 (60-115) mg/dL Lactate 1.1 (0.5-1.9) mmol/L Calcium 8.9 (8.4-10.6) mg/dL Magnesium 1.9 (1.5-2.6) mg/dL Total Bilirubin 0.7 (0.1-1.5) mg/dL Direct Bilirubin 0.2 (0.0-0.5) mg/dL AST 40 H (12-35) U/L ALT 48 (4-50) U/L Alkaline Phosphatase 62 (40-150) U/L Troponin I < 0.01 (0.01-0.04) ng/mL POC Troponin I High Sensi 4.9 (2.9-28.0) pg/mL C-Reactive Protein < 0.5 L (0.5-1.0) mg/dL Total Protein 7.3 (6.0-8.3) g/dL Albumin 4.8 (3.3-5.0) g/dL Ethyl Alcohol < 0.01 (0.01-0.03) % Imaging Data CT scan - head: Attestation: I have reviewed the pertinent imaging results. Radiologist's impression: TECHNIQUE: Noncontrast axial CT of the head. Coronal and sagittal reformats. Bone and soft tissue algorithms. COMPARISON: None. FINDINGS: The ventricles and cortical sulci appear age-appropriate. No midline shift or mass effect. No acute intracranial hemorrhage or extra-axial fluid collection. Simon-white matter differentiation is grossly maintained. White matter attenuation is within normal limits. Calcific intracranial atherosclerotic plaquing. Midline structures are unremarkable. The calvarium appears grossly intact. Lobulated mucosal thickening throughout the left nasal cavity, suspicious for polyps. Clear mastoid air cells. Unremarkable orbits. IMPRESSION: 1. No CT evidence of acute intracranial abnormality. 2. Lobulated mucosal thickening throughout the left nasal cavity, potentially polyps. ECG Data Attestation: I personally reviewed and interpreted this ECG as follows: Discharge Plan Discharge Clinical Impression: Syncope, Altered mental status Patient Disposition: Admitted As Observation Condition: Stable
[2025-06-24 18:07] LABS: Lactate* 1.1 mmol/L (0.5-1.9)
[2025-06-24 18:13] LABS: Hematocrit* 42.8 % (37.0-53.0); Hemoglobin* 14.5 gm/dL (13.5-17.5); Immature Granulocytes Abs Auto 0.03 K/uL (0.00-0.30); Immature Granulocytes Pct Auto 0.4 %; Lymphocytes Absolute Auto 2.30 K/uL (0.90-2.90); Mean Corpuscular HGB Conc 34 gm/dL (32-36); Mean Corpuscular Hemoglobin 30 pg (26-34); Mean Corpuscular Volume 90 fL (80-100); RDW Coefficient of Variation % 12.8 % (11.5-15.5); Red Blood Count* 4.78 m/uL (4.30-5.90); Slide Review Reflex No; White Blood Count* 7.13 K/uL (4.50-11.00)
[2025-06-24 18:35] LABS: Albumin* 4.8 g/dL (3.3-5.0); Chloride* 100 mmol/L (96-114)
[2025-06-24 18:36] LABS: Potassium* 4.4 mmol/L (3.6-5.1); Sodium* 139 mmol/L (135-149)
[2025-06-24 18:38] LABS: Alanine Aminotransferase* 48 U/L (4-50); Alkaline Phosphatase* 62 U/L (40-150); Anion Gap 12 mEq/L (7-15); Aspartate Amino Transferase* 40 U/L (12-35); Bilirubin Direct* 0.2 mg/dL (0.0-0.5); Bilirubin Total* 0.7 mg/dL (0.1-1.5); Blood Urea Nitrogen* 22 mg/dL (7-30); Carbon Dioxide* 27 mmol/L (20-32); Creatinine* 1.3 mg/dL (0.5-1.5); Est. Creatinine Clearance* 51.15; Estimated Glomerular Filt Rate 59 ml/min; Total Protein* 7.3 g/dL (6.0-8.3)
[2025-06-24 18:39] LABS: Calcium* 8.9 mg/dL (8.4-10.6); Glucose* 95 mg/dL (60-115)
[2025-06-24 18:41] LABS: Ethanol* < 0.01 % (0.01-0.03)
[2025-06-24] MEDS: LEVETIRACETAM 1,000 mg/100 ml INFUSION 1000 MG IVPB (19:20)
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
[2025-06-24] MEDS: SODIUM CHLORIDE 0.9 % (FLUSH) 10 ML SYRINGE 5 ML IVF (22:46)
--- NOTE | 2025-06-24 23:17 | PC.NURSE ---
End of shift Note 249 Patient was very pleasant and cooperative. VSS. Afebrile. A&Ox4. Moves well SBA with gait belt (normally independent but due to seizure precautions he is currently SBA). Seizure precautions in place. Uses call light appropriately. Call light within reach.
[2025-06-24 23:42] LABS: Appearance Urine Clear (Clear)
[2025-06-25 04:14] VITALS: BP 110/69; PULSE 60; RESP 16; TEMP 36.5; O2SAT 98
--- NOTE | 2025-06-25 06:56 | PC.NURSE ---
Pt is alert and oriented x3. Afebrile. Pt?denies pain. Pt is up SBA, voiding and tolerating a regular diet.??
[2025-06-25 07:00] VITALS: PULSE 58; PULSE 59; RESP 16
[2025-06-25 07:09] LABS: Lactate* 1.4 mmol/L (0.5-1.9)
[2025-06-25 07:16] LABS: Hematocrit* 41.1 % (37.0-53.0); Hemoglobin* 13.9 gm/dL (13.5-17.5); Mean Corpuscular HGB Conc 34 gm/dL (32-36); Mean Corpuscular Hemoglobin 30 pg (26-34); Mean Corpuscular Volume 90 fL (80-100); Red Blood Count* 4.57 m/uL (4.30-5.90); White Blood Count* 5.59 K/uL (4.50-11.00)
[2025-06-25 07:22] LABS: Slide Review Reflex No
[2025-06-25 07:32] LABS: Chloride* 101 mmol/L (96-114); Potassium* 4.6 mmol/L (3.6-5.1); Sodium* 137 mmol/L (135-149)
[2025-06-25 07:35] LABS: Anion Gap 10 mEq/L (7-15); Blood Urea Nitrogen* 19 mg/dL (7-30); Carbon Dioxide* 26 mmol/L (20-32); Creatinine* 1.0 mg/dL (0.5-1.5); Est. Creatinine Clearance* 66.50; Estimated Glomerular Filt Rate 81 ml/min
[2025-06-25 07:36] LABS: Calcium* 8.7 mg/dL (8.4-10.6); Glucose* 112 mg/dL (60-115)
[2025-06-25 08:00] VITALS: BP 123/79; PULSE 59; TEMP 36.4; O2SAT 97
[2025-06-25] MEDS: ASPIRIN 81 MG TABLET EC PO (08:10)
[2025-06-25 11:29] VITALS: BP 119/64; BP 124/73; BP 130/82; PULSE 58; PULSE 60; PULSE 64; RESP 18; O2SAT 96
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
--- NOTE | 2025-06-25 12:40 | REH.PT ---
PT eval and treat order received. PT screening for mobility, stairs, transfers and BP- all are normal and at prior level of function. Patient does not need skilled PT services and no charge for screening. Order stopped with PA verbal approval.
--- NOTE | 2025-06-25 14:47 | PC.NURSE ---
Nursing Care Hours: [id number] Pt this shift calm and cooperative. Alert and oriented. No c/o pain, does report tenderness to back of head where pt hit head from fall at home. No bruising or swelling observed. VSS. SBA in the room and gait steady. Orthostatics done. Zio patch applied, pt and spouse instructed on use and return. Discharge instructions went over with pt and spouse, all questions and concerns addressed. Pt instructed to call for follow up appt Friday.
== END 2025-06-25 13:30 | disposition home or self-care (01) ==
LOC: ED 19:10 → MEDSURG 19:49
PROVIDERS: Admitting Provider Internal Medicine; Emergency Provider Family Medicine; PCP Family Medicine; Visit Provider Internal Medicine
DX: R55 Syncope and collapse (principal); R40.4 Transient alteration of awareness; R82.90 Unspecified abnormal findings in urine; W18.30XA Fall on same level, unspecified, initial encounter; Y93.01 Activity, walking, marching and hiking; Y92.008 Other place in unspecified non-institutional (private) residence as the place of occurrence of the external cause
CPT/HCPCS: 36415; 70450; 70496; 70498; 80048; 80076; 81001; 82077; 83036; 83605; 83735; 84100; 84484; 85025; 85027; 86140; 87086; 93005; 93246; 94761; 99285; 99291; A9270; G0378; J1953; Q9967

== ENCOUNTER 2025-07-01 14:00 | Outpatient (CLI) | payer MEDICARE, OTHER, SELFPAY ==
--- NOTE | 2025-07-01 14:30 | CRLHL7_ITS ---
For Patients: As a result of the Century Cures Act, medical imaging exams and procedure reports are released immediately into your electronic medical record. You may view this report before your referring provider. If you have questions, please contact your health care provider. Indication: Syncope and collapse. Technique: Multiplanar multisequence noncontrast MR images of the brain. Comparison: CT brain 06/24/2025. Findings: Mild diffuse cerebral volume loss. No mass effect or midline shift. Few punctate FLAIR hyperintensities in the supratentorial white matter, typical for minimal chronic microvascular ischemic changes. No intracranial hemorrhage or pathologic extra-axial fluid collection. No diffusion restriction to suggest acute infarction. The major arterial flow voids of the skull base are preserved. The globes are symmetric. Moderate left ethmoid and left maxillary sinus mucosal thickening. The mastoid air cells are clear. Impression: 1. No acute intracranial abnormality. 2. Mild diffuse cerebral volume loss and minimal chronic microvascular ischemic changes. Dictated by Terrence Ramirez MD @ 07/02/2025 9:21:09 AM (Electronically Signed)
== END 2025-07-01 14:01 | disposition home or self-care (01) ==
LOC: MRI 14:01
PROVIDERS: PCP Family Medicine; Visit Provider Family Medicine
DX: R55 Syncope and collapse (principal); I67.9 Cerebrovascular disease, unspecified
CPT/HCPCS: 70551

== ENCOUNTER 2025-07-04 06:27 | Emergency (ER) | payer MEDICARE, OTHER, SELFPAY ==
[2025-07-04] VITALS (30 sets, daily range): BP systolic 130–161; BP diastolic 77–97; PULSE 55–73; RESP 10–18; TEMP 36.7; O2SAT 94–99; BMI 31.5
--- OUTSIDE RECORDS SUMMARY | 2025-07-04 06:29 | XMS_ITS | Clinical Summary ---
Author Organization [employer] Address [address] [place] [address] Care Team Providers Care Spike Maker Name Role Phone Javi Kapoor MD Primary Care Provider [phone] Allergies No known active allergies Medications aspirin [...] Encounters Date Type Department Care Team Description 07/01/2025 Orders Only [facility] Scanner 1 scan: (1-Ord) INCOMING RECORDS-LABS, [facility], 07/01/2025 07/01/2025 Orders Only [facility] Scanner 1 scan: (1-Ord) INCOMING RECORDS-EKG, [facility], 07/01/2025 07/01/2025 Orders Only [facility] Scanner 1 scan: (1-Ord) INCOMING RECORDS-EVENT MONITOR, [facility], 07/01/2025 07/01/2025 Transcribe Orders [facility] [address] [place] [id number] Javi Kapoor MD 06/25/2025 Office Visit [facility] [address] [place] [address] Cindy Grant MD Telehealth ([facility]) 04/04/[address] [facility] [address] [place] [address] Pet Caregiver, [facility] from Last 3 Months Immunizations Immunization Administration Dates Next Due COVID-19 vaccine (Moderna 100mcg/0.5mL) PF, MDV 11/02/2020,10/06/2020 Influenza, IIV3 (Age >=3 years) 05/13/2012,07/25 [...] II defic iency Relation Name Status Comments Brothherve Law Alive Father Nima (Age 73) Ca Lungs [...] on file Legal Sex Male 5:24 AM [employer] [facility] Gender Identity Not on file Sexual Orientation Not on file Occupation Industry Job Start Date Job End Date [employer] Not on file Not on file Not on file Last Filed Vital Signs Vital Sign Reading Time Taken Comments Blood Pressure 131/79 08/26/2012 11:01 AM [employer] [facility] to wer Pulse 55 08/26/2012 11:01 AM [employer] [facility] Temperature 36.8 C (98.3 F) 08/26/2012 11:01 AM [employer] [facility] Respiratory Rate 12 05/11/2012 10:00 AM CDT Oxygen Saturation 98% 08/26/2012 11:01 AM [employer] Inhaled Oxygen Concentration - - Weight 94.6 kg (208 lb 9.6 oz) 08/26/2012 11:01 AM [facility] [facility] Height 177.8 cm (5' 10) 05/10/2012 1:50 [...] for age 65+ 10/11/2019 COVID-19 vaccine series (2024- season) 2025 04/18/2022, 05/24/2021, 11/02/2020, Additional history exists Influenza Vaccine (#1) 2025 05/13/2012, 2010 RSV vaccine for adults or (1 - 1-dose 75+ series) 2029 Hepatitis B series for 19+ Aged Out N o longer eligible based on patient's age to complete this topic Procedures Procedure Name Priority Date/Time Associated Diagnosis Comments SCAN CORRESP-EKG RESULTS 07/01/2025 12:00 AM [facility] SCAN CORRESP-LABORATORY RESULTS 07/01/2025 12:00 AM [facility] SCAN CORRESP-DIAGNOSTIC S 07/01/2025 12:00 AM [facility] LIPID PANEL W REFLEX MEASURED LDL Routine 07/08/2012 7:29 AM [facility] [facility] Mixed hyperlipidemia from Last 3 Months or Most Recently Relevant to Health Maintenance Results * SCAN CORRESP-LABORATORY RESULTS (07/01/2025 12:00 AM [facility] [facility]) us Scanner OTHER Final Result * SCAN CORRESP-EKG RESULTS (07/01/2025 12:00 AM [facility] [facility]) us Scanner OTHER Final Result * SCAN CORRESP-DIAGNOSTICS (07/01/2025 12:00 AM [facility]) us Scanner OTHER Final Result * (ABNORMAL) LIPID PANEL W REFLEX MEASURED LDL (07/08/2012 7:29 AM [facility]) CHOLESTEROL,TOTAL 142 100 - 199 mg/dL 07/08/2012 9:23 AM [facility] TRIGLYCERIDES 115 <150 mg/dL 07/08/2012 9:23 AM [facility] HDL CHOLESTEROL 39(L) >40 mg/dL 2 9:23 AM [facility] NON-HDL CHOLESTEROL 103 <145 mg/dl 07/08/2012 9:23 AM [facility] CHOL/HDL RATIO 3.64 <4.50 07/08/2012 9:23 AM [facility] LDL CHOLESTEROL 80 <=130 mg/dL 07/08/2012 9:23 AM [facility] PATIENT STATUS FASTING 07/08/2012 9:23 AM [facility] Blood specimen (specimen) BLOOD SPECIMEN / Unknown 07/08/2012 7:29 AM [facility] 07/08/2012 7:29 AM [facility] us Aba Contreras MD CHEMISTRY Final Result Performing Organization Address [facility]/State[facility] Co de Phone Number [facility] [address] [place] [address] from Last 3 Months or Most Recently Relevant to Health Maintenance Insurance [employer] MR PB ONLY Advance Directives * Full Code (Latest Code Status on File) Date Activated Date Inactivated Comments 05/10/2012 2:54 PM 05/11/2012 4:58 PM Care Teams Spike Maker Relationship Specialty Start Date End Date Javi Kapoor MD PCP - General Family Practice 07/07/18
--- NOTE | 2025-07-04 07:09 | ED_ITS ---
HPI - Dizziness General Chief Complaint: Dizziness/Vertigo <Melissa Beckett MD - Last Filed: 07/05/25 23:51> Stated Complaint: Unable to walk and Dizzy <Melissa Beckett MD - Last Filed: 07/05/25 23:51> Time Seen by Provider: 07/04/25 06:46 <Melissa Beckett MD - Last Filed: 07/05/25 23:51> Source: patient and family <Melissa Beckett MD - Last Filed: 07/05/25 23:51> Mode of arrival: ambulatory <Melissa Beckett MD - Last Filed: 07/05/25 23:51> Limitations: no limitations <Melissa Beckett MD - Last Filed: 07/05/25 23:51> History of Present Illness HPI Narrative: Patient presents to the emergency room with 90 minutes of dizziness, noted upon awakening this morning at 5:00 a.m.. Last known well was the previous evening. Symptoms were very prominent for probably about 20 minutes and then patient elected to wake up his . Specifically he felt very off balance when he went to get up to go to the bathroom. He felt like he would fall. Does not describe a sensation of the room spinning but symptoms did improve with being still and lying down. There was no vomiting. He denies fever. No headache. Patient's symptoms were really bothersome for about 20-30 minutes, he then woke up his to tell her about his symptoms. She felt like he was less talkative than usual but admits that he is fairly quiet so not much but baseline change. He says that his legs felt cold but that has resolved as well. Patient's symptoms did resolve completely to the point where once he got to the emergency room, he waited out in the car to decide if he really wanted to be checked in. Ultimately, he did start to feel dizzy again and presents into the ED. Symptoms did improve through triage and he denies any current symptoms with me while he is sitting still in the bed. But sitting forward on exam does reproduce his symptoms somewhat. No focal weakness, denies speech difficulty or problems with word finding but does feel like he is confused overall. Patient was evaluated in the ED 10 days ago for syncopal symptoms. He was ultimately admitted for observation. Initially it was thought that his symptoms might be seizures. He was started on Keppra and admitted for observation. Patient had no further events and at the time of discharge decision was made to discontinue the Keppra. He had an extensive outpatient workup arranged including a Zoll monitor, echo, brain MRI and ultimately and neurology follow-up planned. Patient had the MRI but just a couple of days ago, results have not yet been reported to him. These all monitor had to be removed to have the MRI performed and arrangements are being made to have this replaced. He has not been experiencing any chest pain, dyspnea on exertion. He has no prior history of heart failure. He has no prior history of stroke. He has had several head injuries in the past. No recent changes to his medications. No new fall or injury or syncopal spells or any type of loss of consciousness since the last evaluation. Discharge summary reviewed. Past medical history notable for gout, hyperlipidemia. His chart reflects a history of factor 5 Leiden mutation and a prior left bundle-branch block. No known drug allergies. Home meds are aspirin, allopurinol, atorvastatin and a multivitamin. Denies alcohol intake or tobacco use. ROS is notable for the generalized and neurological symptoms as above, otherwise denies times 12 systems. <Melissa Beckett MD - Last Filed: 07/05/25 23:51> Related Data Home Medications: Home Medications ?Medication ?Instructions ?Recorded ?Confirmed aspirin 81 mg tablet,delayed 81 mg PO DAILY 04/01/23 1 08/30/24 release multivitamin with minerals 1 tab PO QDAY 04/01/2310/19 (Multiple Vitamin-Minerals tablet) allopurinol 100 mg tablet 100 mg PO DAILY 06/25/2510/19 atorvastatin 20 mg tablet 20 mg PO HS 06/25/25 5 <Melissa Beckett MD - Last Filed: 07/05/25 23:51> Allergies/Adverse Reactions: Allergies Allergy/AdvReac Type Severity Reaction Status Date / Time No Known Allergies Allergy Verified 06/29/25 13:14 <Melissa Beckett MD - Last Filed: 07/05/25 23:51> [facility] Medical History: Medical History History of multiple concussions ?Z87.820 - Personal history of traumatic brain injury (ICD-10) Paroxysmal supraventricular tachycardia ?I47.10 - Supraventricular tachycardia, unspecified (ICD-10) Hyperlipidemia ?E78.5 - Hyperlipidemia, unspecified (ICD-10) Calculus of right ureter ?N20.1 - Calculus of ureter (ICD-10) Hearing loss ?H91.90 - Unspecified hearing loss, unspecified ear (ICD-10) Degeneration of intervertebral disc of cervical region ?M50.30 - Other cervical disc degeneration, unspecified cervical region (ICD- 10) Left bundle branch block ?I44.7 - Left bundle-branch block, unspecified (ICD-10) Adenomatous polyp of colon ?D12.6 - Benign neoplasm of colon, unspecified (ICD-10) Lumbar disc herniation ?M51.26 - Other intervertebral disc displacement, lumbar region (ICD-10) Chronic back pain ?M54.9 - Dorsalgia, unspecified (ICD-10) ?G89.29 - Other chronic pain (ICD-10) Gout ?M10.9 - Gout, unspecified (ICD-10) Factor V Leiden mutation ?D68.51 - Activated protein C resistance (ICD-10) History of coronary angiogram ?Z98.890 - Other specified postprocedural states (ICD-10) <Melissa Beckett MD - Last Filed: 07/05/25 23:51> Surgical History: Surgical History H/O umbilical hernia repair ?Z98.890 - Other specified postprocedural states (ICD-10) ?Z87.19 - Personal history of other diseases of the digestive system (ICD-10) S/P bilateral inguinal hernia repair ?Z98.890 - Other specified postprocedural states (ICD-10) ?Z87.19 - Personal history of other diseases of the digestive system (ICD-10) Status post laparoscopic cholecystectomy ?Z90.49 - Acquired absence of other specified parts of digestive tract (ICD- 10) Status post appendectomy ?Z90.49 - Acquired absence of other specified parts of digestive tract (ICD- 10) <Melissa Beckett MD - Last Filed: 07/05/25 23:51> Social History: Social History What is your current living situation?: I presently have a place to live Problems where you live: no known problems In the past 12 months, utilities in danger of being shut off: no In past 12 months, lack of transportation kept you from medical appts, meetings, work, or getting things needed for daily living: no In the past 12 mos, have been you worried that your food would run out before you had money to buy more?: never true In the past 12 mos, the food you bought just didn't last and you didn't have money to buy more?: never true Highest level of school completed/degree received: high school graduate Smoking Status: Never smoker Second hand tobacco smoke exposure: No How often do you have a drink containing alcohol: monthly or less Alcohol type: beer and wine How many standard drinks containing alcohol do you have on a typical day: 1 or 2 How often do you have six or more drinks on one occasion: Less than monthly AUDIT-C Alcohol total score: 2 Non-prescribed substance use: denies use Caffeine: Yes (tea) How often does anyone, including family, friends and others, physically hurt you : never How often does anyone, including family, friends and others, insult or talk down to you: never How often does anyone, including family, friends and others, threaten you with harm: never How often does anyone, including family, friends and others, scream or curse at you: never service: No <Melissa Beckett MD - Last Filed: 07/05/25 23:51> Exam Const: Vital Signs, click to edit/add: Vital Signs - 24 hr 07/04/25 06:40 07/04/25 06:44 07/04/25 07:00 Temperature 98.0 F Pulse Rate 60 Pulse Rate [Right Pulse Oximeter] 63 57 L Pulse Rate [orthos tatic lying Left P ulse Oximeter] Pulse Rate [orthos tatic sitting Left Pulse Oximeter] Pulse Rate [orthos tatic standing Lef t Pulse Oximeter] Respiratory Rate 18 18 Blood Pressure 144/82 H Blood Pressure [Ri ght Upper Arm] 161/97 H 152/89 H Blood Pressure [or thostatic lying Ri ght Arm] Blood Pressure [or thostatic sitting Right Arm] Blood Pressure [or thostatic standing Right Arm] Pulse Oximetry 99 95 Oxygen Delivery Me thod Room Air 07/04/25 07:00 07/04/25 07:02 07/04/25 07:15 Temperature Pulse Rate 61 56 L 59 L Pulse Rate [Right Pulse Oximeter] Pulse Rate [orthos tatic lying Left P ulse Oximeter] Pulse Rate [orthos tatic sitting Left Pulse Oximeter] Pulse Rate [orthos tatic standing Lef t Pulse Oximeter] Respiratory Rate 10 L Blood Pressure 152/89 H Blood Pressure [Ri ght Upper Arm] Blood Pressure [or thostatic lying Ri ght Arm] Blood Pressure [or thostatic sitting Right Arm] Blood Pressure [or thostatic standing Right Arm] Pulse Oximetry 97 96 96 Oxygen Delivery Me thod 07/04/25 07:16 07/04/25 07:18 07/04/25 07:19 Temperature Pulse Rate 65 66 Pulse Rate [Right Pulse Oximeter] Pulse Rate [orthos tatic lying Left P ulse Oximeter] Pulse Rate [orthos tatic sitting Left Pulse Oximeter] Pulse Rate [orthos tatic standing Lef t Pulse Oximeter] Respiratory Rate Blood Pressure 139/80 144/78 H 147/83 H Blood Pressure [Ri ght Upper Arm] Blood Pressure [or thostatic lying Ri ght Arm] Blood Pressure [or thostatic sitting Right Arm] Blood Pressure [or thostatic standing Right Arm] Pulse Oximetry 97 96 Oxygen Delivery Me thod 07/04/25 07:21 07/04/25 07:41 07/04/25 07:45 Temperature Pulse Rate 63 Pulse Rate [Right Pulse Oximeter] Pulse Rate [orthos tatic lying Left P ulse Oximeter] 59 L Pulse Rate [orthos tatic sitting Left Pulse Oximeter] 62 Pulse Rate [orthos tatic standing Lef t Pulse Oximeter] 70 Respiratory Rate 18 Blood Pressure Blood Pressure [Ri ght Upper Arm] Blood Pressure [or thostatic lying Ri ght Arm] 139/80 Blood Pressure [or thostatic sitting Right Arm] 144/78 H Blood Pressure [or thostatic standing Right Arm] 147/83 H Pulse Oximetry 94 Oxygen Delivery Me thod 07/04/25 08:00 07/04/25 08:02 07/04/25 08:15 Temperature Pulse Rate 55 L 64 72 Pulse Rate [Right Pulse Oximeter] Pulse Rate [orthos tatic lying Left P ulse Oximeter] Pulse Rate [orthos tatic sitting Left Pulse Oximeter] Pulse Rate [orthos tatic standing Lef t Pulse Oximeter] Respiratory Rate 15 Blood Pressure 140/77 H Blood Pressure [Ri ght Upper Arm] Blood Pressure [or thostatic lying Ri ght Arm] Blood Pressure [or thostatic sitting Right Arm] Blood Pressure [or thostatic standing Right Arm] Pulse Oximetry 94 97 96 Oxygen Delivery Me thod 07/04/25 08:30 07/04/25 08:32 07/04/25 08:33 Temperature Pulse Rate 57 L 60 57 L Pulse Rate [Right Pulse Oximeter] Pulse Rate [orthos tatic lying Left P ulse Oximeter] Pulse Rate [orthos tatic sitting Left Pulse Oximeter] Pulse Rate [orthos tatic standing Lef t Pulse Oximeter] Respiratory Rate 14 13 Blood Pressure 149/77 H Blood Pressure [Ri ght Upper Arm] Blood Pressure [or thostatic lying Ri ght Arm] Blood Pressure [or thostatic sitting Right Arm] Blood Pressure [or thostatic standing Right Arm] Pulse Oximetry 95 96 97 Oxygen Delivery Me thod 07/04/25 08:45 07/04/25 09:00 07/04/25 09:15 Temperature Pulse Rate 55 L 65 62 Pulse Rate [Right Pulse Oximeter] Pulse Rate [orthos tatic lying Left P ulse Oximeter] Pulse Rate [orthos tatic sitting Left Pulse Oximeter] Pulse Rate [orthos tatic standing Lef t Pulse Oximeter] Respiratory Rate Blood Pressure Blood Pressure [Ri ght Upper Arm] Blood Pressure [or thostatic lying Ri ght Arm] Blood Pressure [or thostatic sitting Right Arm] Blood Pressure [or thostatic standing Right Arm] Pulse Oximetry 98 97 98 Oxygen Delivery Me thod 07/04/25 09:30 07/04/25 09:32 07/04/25 09:45 Temperature Pulse Rate 59 L 59 L 64 Pulse Rate [Right Pulse Oximeter] Pulse Rate [orthos tatic lying Left P ulse Oximeter] Pulse Rate [orthos tatic sitting Left Pulse Oximeter] Pulse Rate [orthos tatic standing Lef t Pulse Oximeter] Respiratory Rate Blood Pressure 134/87 Blood Pressure [Ri ght Upper Arm] Blood Pressure [or thostatic lying Ri ght Arm] Blood Pressure [or thostatic sitting Right Arm] Blood Pressure [or thostatic standing Right Arm] Pulse Oximetry 96 96 97 Oxygen Delivery Me thod 07/04/25 10:00 07/04/25 10:02 07/04/25 10:15 Temperature Pulse Rate 63 68 59 L Pulse Rate [Right Pulse Oximeter] Pulse Rate [orthos tatic lying Left P ulse Oximeter] Pulse Rate [orthos tatic sitting Left Pulse Oximeter] Pulse Rate [orthos tatic standing Lef t Pulse Oximeter] Respiratory Rate 13 14 Blood Pressure 130/86 Blood Pressure [Ri ght Upper Arm] Blood Pressure [or thostatic lying Ri ght Arm] Blood Pressure [or thostatic sitting Right Arm] Blood Pressure [or thostatic standing Right Arm] Pulse Oximetry 97 95 97 Oxygen Delivery Me thod 07/04/25 10:30 07/04/25 10:32 07/04/25 10:45 Temperature Pulse Rate 59 L 73 58 L Pulse Rate [Right Pulse Oximeter] Pulse Rate [orthos tatic lying Left P ulse Oximeter] Pulse Rate [orthos tatic sitting Left Pulse Oximeter] Pulse Rate [orthos tatic standing Lef t Pulse Oximeter] Respiratory Rate Blood Pressure 138/81 Blood Pressure [Ri ght Upper Arm] Blood Pressure [or thostatic lying Ri ght Arm] Blood Pressure [or thostatic sitting Right Arm] Blood Pressure [or thostatic standing Right Arm] Pulse Oximetry 95 94 98 Oxygen Delivery Me thod 07/04/25 12:17 Temperature Pulse Rate Pulse Rate [Right Pulse Oximeter] 55 L Pulse Rate [orthos tatic lying Left P ulse Oximeter] Pulse Rate [orthos tatic sitting Left Pulse Oximeter] Pulse Rate [orthos tatic standing Lef t Pulse Oximeter] Respiratory Rate 16 Blood Pressure Blood Pressure [Ri ght Upper Arm] 135/80 Blood Pressure [or thostatic lying Ri ght Arm] Blood Pressure [or thostatic sitting Right Arm] Blood Pressure [or thostatic standing Right Arm] Pulse Oximetry 97 Oxygen Delivery Me thod Room Air <Melissa Beckett MD - Last Filed: 07/05/25 23:51> Vital Signs, click to edit/add: Vital Signs - 24 hr 07/04/25 06:40 07/04/25 06:44 07/04/25 07:00 Temperature 98.0 F Pulse Rate 60 Pulse Rate [Right Pulse Oximeter] 63 57 L Pulse Rate [orthos tatic lying Left P ulse Oximeter] Pulse Rate [orthos tatic sitting Left Pulse Oximeter] Pulse Rate [orthos tatic standing Lef t Pulse Oximeter] Respiratory Rate 18 18 Blood Pressure 144/82 H Blood Pressure [Ri ght Upper Arm] 161/97 H 152/89 H Blood Pressure [or thostatic lying Ri ght Arm] Blood Pressure [or thostatic sitting Right Arm] Blood Pressure [or thostatic standing Right Arm] Pulse Oximetry 99 95 Oxygen Delivery Me thod Room Air 07/04/25 07:00 07/04/25 07:02 07/04/25 07:15 Temperature Pulse Rate 61 56 L 59 L Pulse Rate [Right Pulse Oximeter] Pulse Rate [orthos tatic lying Left P ulse Oximeter] Pulse Rate [orthos tatic sitting Left Pulse Oximeter] Pulse Rate [orthos tatic standing Lef t Pulse Oximeter] Respiratory Rate 10 L Blood Pressure 152/89 H Blood Pressure [Ri ght Upper Arm] Blood Pressure [or thostatic lying Ri ght Arm] Blood Pressure [or thostatic sitting Right Arm] Blood Pressure [or thostatic standing Right Arm] Pulse Oximetry 97 96 96 Oxygen Delivery Me thod 07/04/25 07:16 07/04/25 07:18 07/04/25 07:19 Temperature Pulse Rate 65 66 Pulse Rate [Right Pulse Oximeter] Pulse Rate [orthos tatic lying Left P ulse Oximeter] Pulse Rate [orthos tatic sitting Left Pulse Oximeter] Pulse Rate [orthos tatic standing Lef t Pulse Oximeter] Respiratory Rate Blood Pressure 139/80 144/78 H 147/83 H Blood Pressure [Ri ght Upper Arm] Blood Pressure [or thostatic lying Ri ght Arm] Blood Pressure [or thostatic sitting Right Arm] Blood Pressure [or thostatic standing Right Arm] Pulse Oximetry 97 96 Oxygen Delivery Me thod 07/04/25 07:21 07/04/25 07:41 07/04/25 07:45 Temperature Pulse Rate 63 Pulse Rate [Right Pulse Oximeter] Pulse Rate [orthos tatic lying Left P ulse Oximeter] 59 L Pulse Rate [orthos tatic sitting Left Pulse Oximeter] 62 Pulse Rate [orthos tatic standing Lef t Pulse Oximeter] 70 Respiratory Rate 18 Blood Pressure Blood Pressure [Ri ght Upper Arm] Blood Pressure [or thostatic lying Ri ght Arm] 139/80 Blood Pressure [or thostatic sitting Right Arm] 144/78 H Blood Pressure [or thostatic standing Right Arm] 147/83 H Pulse Oximetry 94 Oxygen Delivery Me thod 07/04/25 08:00 07/04/25 08:02 07/04/25 08:15 Temperature Pulse Rate 55 L 64 72 Pulse Rate [Right Pulse Oximeter] Pulse Rate [orthos tatic lying Left P ulse Oximeter] Pulse Rate [orthos tatic sitting Left Pulse Oximeter] Pulse Rate [orthos tatic standing Lef t Pulse Oximeter] Respiratory Rate 15 Blood Pressure 140/77 H Blood Pressure [Ri ght Upper Arm] Blood Pressure [or thostatic lying Ri ght Arm] Blood Pressure [or thostatic sitting Right Arm] Blood Pressure [or thostatic standing Right Arm] Pulse Oximetry 94 97 96 Oxygen Delivery Pr thod 07/04/25 08:30 07/04/25 08:32 07/04/25 08:33 Temperature Pulse Rate 57 L 60 57 L Pulse Rate [Right Pulse Oximeter] Pulse Rate [orthos tatic lying Left P ulse Oximeter] Pulse Rate [orthos tatic sitting Left Pulse Oximeter] Pulse Rate [orthos tatic standing Lef t Pulse Oximeter] Respiratory Rate 14 13 Blood Pressure 149/77 H Blood Pressure [Ri ght Upper Arm] Blood Pressure [or thostatic lying Ri ght Arm] Blood Pressure [or thostatic sitting Right Arm] Blood Pressure [or thostatic standing Right Arm] Pulse Oximetry 95 96 97 Oxygen Delivery Pr thod 07/04/25 08:45 07/04/25 09:00 07/04/25 09:15 Temperature Pulse Rate 55 L 65 62 Pulse Rate [Right Pulse Oximeter] Pulse Rate [orthos tatic lying Left P ulse Oximeter] Pulse Rate [orthos tatic sitting Left Pulse Oximeter] Pulse Rate [orthos tatic standing Lef t Pulse Oximeter] Respiratory Rate Blood Pressure Blood Pressure [Ri ght Upper Arm] Blood Pressure [or thostatic lying Ri ght Arm] Blood Pressure [or thostatic sitting Right Arm] Blood Pressure [or thostatic standing Right Arm] Pulse Oximetry 98 97 98 Oxygen Delivery Me thod 07/04/25 09:30 07/04/25 09:32 07/04/25 09:45 Temperature Pulse Rate 59 L 59 L 64 Pulse Rate [Right Pulse Oximeter] Pulse Rate [orthos tatic lying Left P ulse Oximeter] Pulse Rate [orthos tatic sitting Left Pulse Oximeter] Pulse Rate [orthos tatic standing Lef t Pulse Oximeter] Respiratory Rate Blood Pressure 134/87 Blood Pressure [Ri ght Upper Arm] Blood Pressure [or thostatic lying Ri ght Arm] Blood Pressure [or thostatic sitting Right Arm] Blood Pressure [or thostatic standing Right Arm] Pulse Oximetry 96 96 97 Oxygen Delivery Pr thod 07/04/25 10:00 07/04/25 10:02 07/04/25 10:15 Temperature Pulse Rate 63 68 59 L Pulse Rate [Right Pulse Oximeter] Pulse Rate [orthos tatic lying Left P ulse Oximeter] Pulse Rate [orthos tatic sitting Left Pulse Oximeter] Pulse Rate [orthos tatic standing Lef t Pulse Oximeter] Respiratory Rate 13 14 Blood Pressure 130/86 Blood Pressure [Ri ght Upper Arm] Blood Pressure [or thostatic lying Ri ght Arm] Blood Pressure [or thostatic sitting Right Arm] Blood Pressure [or thostatic standing Right Arm] Pulse Oximetry 97 95 97 [facility] Delivery [facility] 07/04/25 10:30 07/04/25 10:32 07/04/25 10:45 Temperature Pulse Rate 59 L 73 58 L Pulse Rate [Right Pulse Oximeter] Pulse Rate [orthos tatic lying Left P ulse Oximeter] Pulse Rate [orthos tatic sitting Left Pulse Oximeter] Pulse Rate [orthos tatic standing Lef t Pulse Oximeter] Respiratory Rate Blood Pressure 138/81 Blood Pressure [Ri ght Upper Arm] Blood Pressure [or thostatic lying Ri ght Arm] Blood Pressure [or thostatic sitting Right Arm] Blood Pressure [or thostatic standing Right Arm] Pulse Oximetry 95 94 98 Oxygen Delivery [facility] 07/04/25 12:17 Temperature Pulse Rate Pulse Rate [Right Pulse Oximeter] 55 L Pulse Rate [orthos tatic lying Left P ulse Oximeter] Pulse Rate [orthos tatic sitting Left Pulse Oximeter] Pulse Rate [orthos tatic standing Lef t Pulse Oximeter] Respiratory Rate 16 Blood Pressure Blood Pressure [Ri ght Upper Arm] 135/80 Blood Pressure [or thostatic lying Ri ght Arm] Blood Pressure [or thostatic sitting Right Arm] Blood Pressure [or thostatic standing Right Arm] Pulse Oximetry 97 Oxygen Delivery Me thod Room Air <Jameson Horn MD - Last Filed: 07/04/25 15:21> Documenting provider has reviewed patient's vital signs: yes <Melissa Beckett MD - Last Filed: 07/05/25 23:51> Common normals: no apparent distress and alert <Melissa Beckett MD - Last Filed: 07/05/25 23:51> General appearance: cooperative and well kempt <Melissa Beckett MD - Last Filed: 07/05/25 23:51> Other: Speech is slightly slow but his confirms that this is appropriate for him. Appears well nourished, well hydrated. Nontoxic. Friendly and cooperative. Symptoms do worsen with position change which is a new finding. <Melissa Beckett MD - Last Filed: 07/05/25 23:51> HENMT: Common normals: normocephalic, moist oral mucous membranes and oropharynx normal <Melissa Beckett MD - Last Filed: 07/05/25 23:51> Head and scalp: normocephalic <Melissa Beckett MD - Last Filed: 07/05/25 23:51> Face and sinus: normal facial exam <Melissa Beckett MD - Last Filed: 07/05/25 23:51> Mouth: oral and palatal mucosa normal <Melissa Beckett MD - Last Filed: 07/05/25 23:51> Throat: posterior oropharynx normal <Melissa Beckett MD - Last Filed: 07/05/25 23:51> Eye: Common normals: PERRL and conjunctivae normal <Melissa Beckett MD - Last Filed: 07/05/25 23:51> General eye: normal appearance of both eyes <Melissa Beckett MD - Last Filed: 07/05/25 23:51> Conjunctiva: conjunctiva(e) normal <Melissa Beckett MD - Last Filed: 07/05/25 23:51> Pupil: PERRL <Melissa Beckett MD - Last Filed: 07/05/25 23:51> Other: Extraocular movements are present in all directions with seemingly normal visual bustos but patient does have reproduction of symptoms with left upward gaze and this does elicit some left beating horizontal nystagmus. <Melissa Beckett MD - Last Filed: 07/05/25 23:51> Neck & C-Spine: Common normals: full ROM, no lymphadenopathy and no meningeal signs <Melissa Beckett MD - Last Filed: 07/05/25 23:51> Resp: Common normals: normal respiratory effort, no use of accessory muscles and clear to auscultation bilaterally <Melissa Beckett MD - Last Filed: 07/05/25 23:51> Effort & inspection: able to speak in complete sentences <Melissa Beckett MD - Last Filed: 07/05/25 23:51> Auscultation: clear to auscultation bilaterally <Melissa Beckett MD - Last Filed: 07/05/25 23:51> Cardio: Common normals: regular rate, regular rhythm, S1 normal heart sound and S2 normal heart sound <Melissa Beckett MD - Last Filed: 07/05/25 23:51> Rate: regular rate <Melissa Beckett MD - Last Filed: 07/05/25 23:51> Rhythm: regular rhythm <Melissa Beckett MD - Last Filed: 07/05/25 23:51> Heart sounds: S1 normal and S2 normal <MD Thuy García Last Filed: 07/05/25 23:51> GI: Common normals: Normal to inspection, nondistended, normoactive bowel sounds present, soft to palpation, non-tender and no hepatosplenomegaly <Melissa Beckett MD - Last Filed: 07/05/25 23:51> Palpation: soft and no hepatosplenomegaly <Melissa Beckett MD - Last Filed: 07/05/25 23:51> Extremity: Common normals: normal to inspection, normal capillary refill and no pedal edema <Melissa Beckett MD - Last Filed: 07/05/25 23:51> Neuro: Common normals: CN's II-XII intact bilaterally, moves all extremities and no focal motor deficits <Melissa Beckett MD - Last Filed: 07/05/25 23:51> Sensorium/orientation: alert <Melissa Beckett MD - Last Filed: 07/05/25 23:51> Meningeal signs: no meningeal signs <Melissa Beckett MD - Last Filed: 07/05/25 23:51> Coordination/balance: Normal rapid alternating movements of the distal upper extremity present (Neuro) <Melissa Beckett MD - Last Filed: 07/05/25 23:51> Speech: speech normal <Melissa Beckett MD - Last Filed: 07/05/25 23:51> Motor exam: strength 5/5 throughout, no pronator drift and no tremor noted <Melissa Beckett MD - Last Filed: 07/05/25 23:51> Coordination: rapid alternating movement UE normal <Melissa Beckett MD - Last Filed: 07/05/25 23:51> Psych: Common normals: thought process normal, cooperative and affect normal <Melissa Beckett MD - Last Filed: 07/05/25 23:51> Appearance: well kempt <Melissa Beckett MD - Last Filed: 07/05/25 23:51> Thought process: normal thought process <Melissa Beckett MD - Last Filed: 07/05/25 23:51> Other: Mildly anxious but insight reasoning and judgment do seem normal. <Melissa Beckett MD - Last Filed: 07/05/25 23:51> Skin: Common normals: no rashes or lesions noted <Melissa Beckett MD - Last Filed: 07/05/25 23:51> General skin exam: no rashes or lesions noted <Melissa Beckett MD - Last Filed: 07/05/25 23:51> Course Course ED Course: 69-year-old male with recent syncopal spells presenting with new onset dizziness with vertigo and feeling off balance. Symptoms are mostly reproducible with movement currently but were present even at rest upon awakening, much of that has improved. Some vague neurological changes intermittently over the last several months with current extensive workup outpatient in progress. Patient will need to have Zoll monitor placed again, had to be removed because of recent MRI. I have reviewed the MRI from 3 days ago and this was normal but with the new finding of vertigo I do think a new head CT is warranted. I do not think that this will show any new major pathology but with his history of factor 5, he may be at an increased risk of thrombotic event. Will obtain basic labs including viral testing and cardiac workup today to look for acute new findings. I do think that proceeding with the EEG, echo and neurology consult are worthwhile. Will await lab findings, CT results and consider consult Ng with Neurology to help guide urgency of next steps in workup. At this time the only remaining neurological symptom is feeling of dizziness with position changes. Update: I have reviewed the head CT in this looks stable. He does have some degenerative changes in quite a bit of vascular calcification but reports no real changes in the last 10 days. No pertinent new findings. I have paged Neurology for guidance, informed the doctor Rudy is on-call and will call us back. Neurology telehealth visit reviewed from 06/25/2025. <Melissa Beckett MD - Last Filed: 07/05/25 23:51> Reevaluation(s) Reevaluation #1: patient signed out to Dr. Horn at 8:00 a.m.-shift change. Pending formal consult with stroke neurology to evaluate for possible vertigo versus other. Patient was seen by Dr. Grant, stroke Neurology. By about 927 he called me back. He feels that the patient probably has orthostatic presyncope rather than vertigo. He would recommend cardiac workup with EKG, heart monitor, echo. Consider outpatient [place]. He does not feel that the patient's symptoms represent an acute stroke or require inpatient workup. I did work with the ER how can we were able to get the patient on for an echo to be done this morning, rather than 2 days from now on Friday. This was obtained and is essentially normal. Echocardiogram 07/04/2025 final impressions: 1. Normal LV size, borderline wall thickness, normal global systolic function. Calculated EF of 56%. 2. Abnormal septal motion consistent with left bundle branch block. 3. Right ventricular cavity size is normal, global systolic RV function is normal. 4. No pericardial effusion 5. No significant valve disease detected. Patient was rechecked multiple times. He remained essentially asymptomatic and is now feeling better since arriving here in the ER. This patient presents for evaluation of a Episode of dizziness/nearsyncopal event. A broad differential was considered. echo here in the ER does not show any significant impairment in the ER for any significant valvular disease. Initial ECG shows normal sinus rhythm and no dysrhythmogenic abnormality such as WPW, prolonged QT, Brugada syndrome, and no ischemia. No symptoms/findings concerning for cardiac ischemia or ACS . Serial troponins are negative and he did not have any chest pain. No headache or other neurologic symptoms to suggest subarachnoid , stroke . Repeat head CT days normal. He experienced another event a week or 2 ago which potentially may have been a seizure because apparently there was a postictal phase. He has already had part of an outpatient workup including a brain MRI that was normal and he is apparently scheduled for EEG testing coming up. Neurology consult today suggest that this is probably dizziness related to orthostasis or blood pressure or cardiac etiology rather than neuro. color television console monitor while the patient here in the ER showed no dysrhythmia or ectopy. A broad differential diagnosis was considered including SVT, Atrial fibrillation, ventricular arrhythmia, thyroid disease, acute electrolyte abnormality, drugs/medications, medication side effect, anemia, heart disease, PE, among others. The workup and exam here in ED shows low risk for dangerous cause of the patient's syncope, and no risks factors to warrant admission. Clinical judgement suggests that supportive outpatient management is indicated. Patient and his prefer to go home. His PCP had ordered an Zio Patch last week after checkup but that had to be removed last Friday for his MRI and so he has not had color television console monitor in place over the weekend or this morning when this event happened. We did replace a new Zio patch today for continued cardiac monitoring. Recommend follow up with his PCP for further workup.. Questions answered and return precautions given <Jameson Horn MD - Last Filed: 07/04/25 15:21> Vital Signs Vital signs: Initial Vital Signs Temperature 98.0 F 07/04/25 06:40 Temperature Source Temporal Artery Scan 07/04/25 06:40 Pulse Rate 63 07/04/25 06:40 Respiratory Rate 18 07/04/25 06:40 Blood Pressure 161/97 H 07/04/25 06:40 Blood Pressure Mean 118 H 07/04/25 06:40 Blood Pressure Position Sitting 07/04/25 06:40 Pulse Oximetry 99 07/04/25 06:40 Oxygen Delivery Method Room Air 07/04/25 06:40 Vital Signs Temperature 98.0 F 07/04/25 06:40 Pulse Rate 63 07/04/25 06:40 Respiratory Rate 18 07/04/25 06:40 Blood Pressure 161/97 H 07/04/25 06:40 Pulse Oximetry 99 07/04/25 06:40 Oxygen Delivery Method Room Air 07/04/25 06:40 Temperature 98.0 F 07/04/25 06:40 Pulse Rate 55 L 07/04/25 12:17 Respiratory Rate 16 07/04/25 12:17 Blood Pressure 135/80 07/04/25 12:17 Pulse Oximetry 97 07/04/25 12:17 Oxygen Delivery Method Room Air 07/04/25 12:17 <Melissa Beckett MD - Last Filed: 07/05/25 23:51> Initial Vital Signs Temperature 98.0 F 07/04/25 06:40 Temperature Source Temporal Artery Scan 07/04/25 06:40 Pulse Rate 63 07/04/25 06:40 Respiratory Rate 18 07/04/25 06:40 Blood Pressure 161/97 H 07/04/25 06:40 Blood Pressure Mean 118 H 07/04/25 06:40 Blood Pressure Position Sitting 07/04/25 06:40 Pulse Oximetry 99 07/04/25 06:40 Oxygen Delivery Method Room Air 07/04/25 06:40 Vital Signs Temperature 98.0 F 07/04/25 06:40 Pulse Rate 63 07/04/25 06:40 Respiratory Rate 18 07/04/25 06:40 Blood Pressure 161/97 H 07/04/25 06:40 Pulse Oximetry 99 07/04/25 06:40 Oxygen Delivery Method Room Air 07/04/25 06:40 Temperature 98.0 F 07/04/25 06:40 Pulse Rate 55 L 07/04/25 12:17 Respiratory Rate 16 07/04/25 12:17 Blood Pressure 135/80 07/04/25 12:17 Pulse Oximetry 97 07/04/25 12:17 Oxygen Delivery Method Room Air 07/04/25 12:17 <Jameson Horn MD - Last Filed: 07/04/25 15:21> MDM - Dizziness Differential Diagnosis Differential diagnosis: Likely adverse reaction to drug, benign paroxysmal positional vertigo, orthostatic hypotension, vertebral basilar insufficiency, cerebrovascular accident, acute vestibular neuronitis and transient cerebral ischemia <Melissa Beckett MD - Last Filed: 07/05/25 23:51> Medical Records Attestation: I reviewed the patient's medical records. <Melissa Beckett MD - Last Filed: 07/05/25 23:51> Lab Data Attestation: I reviewed the patient's lab results. <Melissa Beckett MD - Last Filed: 07/05/25 23:51> Labs: Lab Results 07/04/25 07/04/25 07/04/25 Range/Units 06:55 07:15 09:04 WBC 5.69 (4.50-11.00) K/uL RBC 4.95 (4.30-5.90) m/uL Hgb 15.0 (13.5-17.5) gm/dL Hct 44.1 (37.0-53.0) % MCV 89 (80-100) fL MCH 30 (26-34) pg MCHC 34 (32-36) gm/dL RDW Coeff of Laure 13.0 (11.5-15.5) % Plt Count 180 (140-440) K/uL Neut % (Auto) 60.6 (42.0-72.0) % Lymph % (Auto) 28.8 (20-44) % [facility] % (Auto) 6.0 (0.0-11.0) % Eos % (Auto) 3.5 (0.0-7.0) % Baso % (Auto) 0.7 (0.0-3.0) % Neut # (Auto) 3.45 (1.7-7.0) K/uL Lymph # (Auto) 1.64 (0.90-2.90) K/uL [facility] # (Auto) 0.30 (0.00-0.90) K/UL Eos # (Auto) 0.20 (0.00-0.50) K/uL Baso # (Auto) 0.04 (0.00-0.30) K/uL Abs Immat Gran (auto) 0.02 (0.00-0.30) K/uL Imm/Tot Granulo (auto) 0.4 % Sodium 139 (135-149) mmol/L Potassium 4.7 (3.6-5.1) mmol/L Chloride 104 (96-114) mmol/L Carbon Dioxide 25 (20-32) mmol/L Anion Gap 10 (7-15) mEq/L BUN 20 (7-30) mg/dL Creatinine 1.1 (0.5-1.5) mg/dL Estimated Creat Clear 62.49 Estimated GFR 72 ml/min Glucose 131 H (60-115) mg/dL Calcium 8.8 (8.4-10.6) mg/dL Total Bilirubin 1.0 (0.1-1.5) mg/dL AST 41 H (12-35) U/L ALT 44 (4-50) U/L Alkaline Phosphatase 46 (40-150) U/L POC Troponin I High Sensi 5.2 9.5 (2.9-28.0) pg/mL C-Reactive Protein < 0.5 L (0.5-1.0) mg/dL NT-Pro-B Natriuret Pep < 20 (See Note) pg/mL Total Protein 7.0 (6.0-8.3) g/dL Albumin 4.6 (3.3-5.0) g/dL Urine Color (Yellow) Urine Appearance (Clear) Urine pH (5.0-8.5) Ur Specific [place] (1.000-1.030) Urine Protein (Negative) Urine Glucose (UA) (Negative) Urine Ketones (Negative) Urine Blood (Negative) Urine Nitrite (Negative) Urine Bilirubin (Negative) Urine Urobilinogen (0.2-1.0) Ur Leukocyte Esterase (Negative) Ethyl Alcohol < 0.01 (0.01-0.03) % SARS-CoV-2 (PCR) Negative SARS-CoV-2 (Negative) Influenza Type A (PCR) Negative PCR FLU A (Negative) Influenza Type B (PCR) Negative PCR FLU B (Negative) RSV (PCR) Negative PCR RSV (Negative) 07/04/25 Range/Units 11:00 WBC (4.50-11.00) K/uL RBC (4.30-5.90) m/uL Hgb (13.5-17.5) gm/dL Hct (37.0-53.0) % MCV (80-100) fL MCH (26-34) pg MCHC (32-36) gm/dL RDW Coeff of Laure (11.5-15.5) % Plt Count (140-440) K/uL Neut % (Auto) (42.0-72.0) % Lymph % (Auto) (20-44) % [facility] % (Auto) (0.0-11.0) % Eos % (Auto) (0.0-7.0) % Baso % (Auto) (0.0-3.0) % Neut # (Auto) (1.7-7.0) K/uL Lymph # (Auto) (0.90-2.90) K/uL [facility] # (Auto) (0.00-0.90) K/UL Eos # (Auto) (0.00-0.50) K/uL Baso # (Auto) (0.00-0.30) K/uL Abs Immat Gran (auto) (0.00-0.30) K/uL Imm/Tot Granulo (auto) % Sodium (135-149) mmol/L Potassium (3.6-5.1) mmol/L Chloride (96-114) mmol/L Carbon Dioxide (20-32) mmol/L Anion Gap (7-15) mEq/L BUN (7-30) mg/dL Creatinine (0.5-1.5) mg/dL Estimated Creat Clear Estimated GFR ml/min Glucose (60-115) mg/dL Calcium (8.4-10.6) mg/dL Total Bilirubin (0.1-1.5) mg/dL AST (12-35) U/L ALT (4-50) U/L Alkaline Phosphatase (40-150) U/L POC Troponin I High Sensi (2.9-28.0) pg/mL C-Reactive Protein (0.5-1.0) mg/dL NT-Pro-B Natriuret Pep (See Note) pg/mL Total Protein (6.0-8.3) g/dL Albumin (3.3-5.0) g/dL Urine Color Yellow (Yellow) Urine Appearance Clear (Clear) Urine pH 6.0 (5.0-8.5) Ur Specific [place] 1.015 (1.000-1.030) Urine Protein Negative (Negative) Urine Glucose (UA) Negative (Negative) Urine Ketones Negative (Negative) Urine Blood Negative (Negative) Urine Nitrite Negative (Negative) Urine Bilirubin Negative (Negative) Urine Urobilinogen 0.2 (0.2-1.0) Ur Leukocyte Esterase Negative (Negative) Ethyl Alcohol (0.01-0.03) % SARS-CoV-2 (PCR) (Negative) Influenza Type A (PCR) (Negative) Influenza Type B (PCR) (Negative) RSV (PCR) (Negative) <Melissa Beckett MD - Last Filed: 07/05/25 23:51> Lab Results 07/04/25 07/04/25 07/04/25 Range/Units 06:55 07:15 09:04 WBC 5.69 (4.50-11.00) K/uL RBC 4.95 (4.30-5.90) m/uL Hgb 15.0 (13.5-17.5) gm/dL Hct 44.1 (37.0-53.0) % MCV 89 (80-100) fL MCH 30 (26-34) pg MCHC 34 (32-36) gm/dL RDW Coeff of Laure 13.0 (11.5-15.5) % Plt Count 180 (140-440) K/uL Neut % (Auto) 60.6 (42.0-72.0) % Lymph % (Auto) 28.8 (20-44) % [facility] % (Auto) 6.0 (0.0-11.0) % Eos % (Auto) 3.5 (0.0-7.0) % Baso % (Auto) 0.7 (0.0-3.0) % Neut # (Auto) 3.45 (1.7-7.0) K/uL Lymph # (Auto) 1.64 (0.90-2.90) K/uL [facility] # (Auto) 0.30 (0.00-0.90) K/UL Eos # (Auto) 0.20 (0.00-0.50) K/uL Baso # (Auto) 0.04 (0.00-0.30) K/uL Abs Immat Gran (auto) 0.02 (0.00-0.30) K/uL Imm/Tot Granulo (auto) 0.4 % Sodium 139 (135-149) mmol/L Potassium 4.7 (3.6-5.1) mmol/L Chloride 104 (96-114) mmol/L Carbon Dioxide 25 (20-32) mmol/L Anion Gap 10 (7-15) mEq/L BUN 20 (7-30) mg/dL Creatinine 1.1 (0.5-1.5) mg/dL Estimated Creat Clear 62.49 Estimated GFR 72 ml/min Glucose 131 H (60-115) mg/dL Calcium 8.8 (8.4-10.6) mg/dL Total Bilirubin 1.0 (0.1-1.5) mg/dL AST 41 H (12-35) U/L ALT 44 (4-50) U/L Alkaline Phosphatase 46 (40-150) U/L POC Troponin I High Sensi 5.2 9.5 (2.9-28.0) pg/mL C-Reactive Protein < 0.5 L (0.5-1.0) mg/dL NT-Pro-B Natriuret Pep < 20 (See Note) pg/mL Total Protein 7.0 (6.0-8.3) g/dL Albumin 4.6 (3.3-5.0) g/dL Urine Color (Yellow) Urine Appearance (Clear) Urine pH (5.0-8.5) Ur Specific [place] (1.000-1.030) Urine Protein (Negative) Urine Glucose (UA) (Negative) Urine Ketones (Negative) Urine Blood (Negative) Urine Nitrite (Negative) Urine Bilirubin (Negative) Urine Urobilinogen (0.2-1.0) Ur Leukocyte Esterase (Negative) Ethyl Alcohol < 0.01 (0.01-0.03) % SARS-CoV-2 (PCR) Negative SARS-CoV-2 (Negative) Influenza Type A (PCR) Negative PCR FLU A (Negative) Influenza Type B (PCR) Negative PCR FLU B (Negative) RSV (PCR) Negative PCR RSV (Negative) 07/04/25 Range/Units 11:00 WBC (4.50-11.00) K/uL RBC (4.30-5.90) m/uL Hgb (13.5-17.5) gm/dL Hct (37.0-53.0) % MCV (80-100) fL MCH (26-34) pg MCHC (32-36) gm/dL RDW Coeff of Laure (11.5-15.5) % Plt Count (140-440) K/uL Neut % (Auto) (42.0-72.0) % Lymph % (Auto) (20-44) % [facility] % (Auto) (0.0-11.0) % Eos % (Auto) (0.0-7.0) % Baso % (Auto) (0.0-3.0) % Neut # (Auto) (1.7-7.0) K/uL Lymph # (Auto) (0.90-2.90) K/uL [facility] # (Auto) (0.00-0.90) K/UL Eos # (Auto) (0.00-0.50) K/uL Baso # (Auto) (0.00-0.30) K/uL Abs Immat Gran (auto) (0.00-0.30) K/uL Imm/Tot Granulo (auto) % Sodium (135-149) mmol/L Potassium (3.6-5.1) mmol/L Chloride (96-114) mmol/L Carbon Dioxide (20-32) mmol/L Anion Gap (7-15) mEq/L BUN (7-30) mg/dL Creatinine (0.5-1.5) mg/dL Estimated Creat Clear Estimated GFR ml/min Glucose (60-115) mg/dL Calcium (8.4-10.6) mg/dL Total Bilirubin (0.1-1.5) mg/dL AST (12-35) U/L ALT (4-50) U/L Alkaline Phosphatase (40-150) U/L POC Troponin I High Sensi (2.9-28.0) pg/mL C-Reactive Protein (0.5-1.0) mg/dL NT-Pro-B Natriuret Pep (See Note) pg/mL Total Protein (6.0-8.3) g/dL Albumin (3.3-5.0) g/dL Urine Color Yellow (Yellow) Urine Appearance Clear (Clear) Urine pH 6.0 (5.0-8.5) Ur Specific [place] 1.015 (1.000-1.030) Urine Protein Negative (Negative) Urine Glucose (UA) Negative (Negative) Urine Ketones Negative (Negative) Urine Blood Negative (Negative) Urine Nitrite Negative (Negative) Urine Bilirubin Negative (Negative) Urine Urobilinogen 0.2 (0.2-1.0) Ur Leukocyte Esterase Negative (Negative) Ethyl Alcohol (0.01-0.03) % SARS-CoV-2 (PCR) (Negative) Influenza Type A (PCR) (Negative) Influenza Type B (PCR) (Negative) RSV (PCR) (Negative) <Jameson Horn MD - Last Filed: 07/04/25 15:21> Imaging Data CT scan - head: Attestation: I have reviewed the pertinent imaging results. <Melissa Beckett MD - Last Filed: 07/05/25 23:51> My impression: Lots of vascular calcifications and some degenerative changes, but no obvious new bleed or substantial changes since 10 days ago <Melissa Beckett MD - Last Filed: 07/05/25 23:51> Radiologist's impression: IMPRESSION: Involutional changes. No acute-appearing findings. No substantial change since 06/24/2025. Please note that all CT scans at this facility use dose modulation, iterative reconstruction, and/or weight-based dosing when appropriate to reduce radiation dose to as low as reasonably achievable. Dictated by Alex Jain MD @ 07/04/2025 7:32:14 AM <Melissa Beckett MD - Last Filed: 07/05/25 23:51> Discharge Plan Discharge Clinical Impression: Near syncope <Melissa Beckett MD - Last Filed: 07/05/25 23:51> Patient Disposition: Home, Self-Care <Melissa Beckett MD - Last Filed: 07/05/25 23:51> Condition: Stable <Melissa Beckett MD - Last Filed: 07/05/25 23:51> Instructions: Near Syncope (ED) <Melissa Beckett MD - Last Filed: 07/05/25 23:51> Additional Instructions: As we discussed, so far your workup in the ER has not revealed a cause for your dizzy spells. It is very important for you to recheck with your primary care provider, Dr. Zuleta as soon as possible. Call his office today to arrange your ER follow-up visit. Your echocardiogram in the ER today looks okay. You do not need to go back to the office for your scheduled echocardiogram on Friday. Where the Zio patch for the next 2 weeks and follow-up with your doctor to get the results. As we discussed, if you have any concerning symptoms please come back to the ER right away-especially if you have more episodes of dizziness, lightheadedness, fainting, headache, chest pain, palpitations, seizures. <Melissa Beckett MD - Last Filed: 07/05/25 23:51> Prescriptions: No Action aspirin 81 mg tablet,delayed release (DR/EC) 81 mg PO DAILY Multiple Vitamin-Minerals Tablet 1 tab PO QDAY atorvastatin 20 mg tablet 20 mg PO HS allopurinol 100 mg tablet 100 mg PO DAILY <Melissa Beckett MD - Last Filed: 07/05/25 23:51> Follow Up/Referrals: Javi Kapoor MD [Primary Care Provider, Family Practice] <Melissa Beckett MD - Last Filed: 07/05/25 23:51> Stand Alone Forms: My[facility] Info Instructions <Melissa Beckett MD - Last Filed: 07/05/25 23:51>
[2025-07-04 07:11] LABS: Hematocrit* 44.1 % (37.0-53.0); Hemoglobin* 15.0 gm/dL (13.5-17.5); Immature Granulocytes Abs Auto 0.02 K/uL (0.00-0.30); Immature Granulocytes Pct Auto 0.4 %; Lymphocytes Absolute Auto 1.64 K/uL (0.90-2.90); Mean Corpuscular HGB Conc 34 gm/dL (32-36); Mean Corpuscular Hemoglobin 30 pg (26-34); Mean Corpuscular Volume 89 fL (80-100); RDW Coefficient of Variation % 13.0 % (11.5-15.5); Red Blood Count* 4.95 m/uL (4.30-5.90); White Blood Count* 5.69 K/uL (4.50-11.00)
--- NOTE | 2025-07-04 07:11 | CRLHL7_ITS ---
For Patients: As a result of the Century Cures Act, medical imaging exams and procedure reports are released immediately into your electronic medical record. You may view this report before your referring provider. If you have questions, please contact your health care provider. INDICATION: Dizziness. COMPARISON: June 24, 2025 TECHNIQUE: CT examination of the head was performed as axial sections without intravenous contrast. Images were obtained from the vertex of the skull through the skull base. Please note that all CT scans at this facility use dose modulation, iterative reconstruction, and/or weight-based dosing when appropriate to reduce radiation dose to as low as reasonably achievable. FINDINGS: The brain shows no sign of mass lesion, mass effect, hemorrhage, or edema. There are involutional changes. There is mild cortical atrophy and there is mild white matter disease. There is no hydrocephalus. The visualized portions of the orbits are normal in appearance. The osseous structures are normal in appearance with no sign of abnormality in the skull base or calvarium. Chronic appearing paranasal sinus mucosal inflammatory change IMPRESSION: Involutional changes. No acute-appearing findings. No substantial change since 06/24/2025. Please note that all CT scans at this facility use dose modulation, iterative reconstruction, and/or weight-based dosing when appropriate to reduce radiation dose to as low as reasonably achievable. Dictated by Alex Jain MD @ 07/04/2025 7:32:14 AM (Electronically Signed)
[2025-07-04 07:20] LABS: Albumin* 4.6 g/dL (3.3-5.0); Chloride* 104 mmol/L (96-114); Potassium* 4.7 mmol/L (3.6-5.1); Sodium* 139 mmol/L (135-149)
[2025-07-04 07:22] LABS: Alanine Aminotransferase* 44 U/L (4-50); Aspartate Amino Transferase* 41 U/L (12-35); Blood Urea Nitrogen* 20 mg/dL (7-30); Creatinine* 1.1 mg/dL (0.5-1.5); Est. Creatinine Clearance* 62.49; Estimated Glomerular Filt Rate 72 ml/min
[2025-07-04 07:23] LABS: Alkaline Phosphatase* 46 U/L (40-150); Anion Gap 10 mEq/L (7-15); Bilirubin Total* 1.0 mg/dL (0.1-1.5); Calcium* 8.8 mg/dL (8.4-10.6); Carbon Dioxide* 25 mmol/L (20-32); Glucose* 131 mg/dL (60-115); Total Protein* 7.0 g/dL (6.0-8.3)
[2025-07-04 07:29] LABS: Ethanol* < 0.01 % (0.01-0.03)
[2025-07-04 07:31] LABS: Slide Review Reflex No
[2025-07-04 08:52] LABS: NT Pro B Type NatriureticPept* < 20 pg/mL (See Note)
[2025-07-04 08:56] LABS: PCR FLU A Negative PCR FLU A (Negative); PCR FLU B Negative PCR FLU B (Negative); PCR RSV Negative PCR RSV (Negative); SARS PCR* Negative SARS-CoV-2 (Negative)
[2025-07-04 11:07] LABS: Appearance Urine Clear (Clear)
== END 2025-07-04 14:26 | disposition home or self-care (01) ==
PROVIDERS: Emergency Medicine; Emergency Provider Family Medicine; PCP Family Medicine
DX: R55 Syncope and collapse (principal)
CPT/HCPCS: 36415; 70450; 80053; 81003; 82077; 83880; 84484; 85025; 86140; 87631; 93005; 93306; 99284; 99285

== ENCOUNTER 2025-07-18 11:59 | Outpatient (CLI) | payer MEDICARE, OTHER, SELFPAY ==
[2025-07-18 14:11] LABS: Hematocrit* 44.3 % (37.0-53.0); Hemoglobin* 15.2 gm/dL (13.5-17.5); Mean Corpuscular HGB Conc 34 gm/dL (32-36); Mean Corpuscular Hemoglobin 30 pg (26-34); Mean Corpuscular Volume 87 fL (80-100); Red Blood Count* 5.09 m/uL (4.30-5.90); White Blood Count* 6.00 K/uL (4.50-11.00)
[2025-07-18 14:14] LABS: Slide Review Reflex No
[2025-07-18 14:21] LABS: Chloride* 104 mmol/L (96-114); Sodium* 140 mmol/L (135-149)
[2025-07-18 14:22] LABS: Potassium* 4.8 mmol/L (3.6-5.1)
[2025-07-18 14:24] LABS: Blood Urea Nitrogen* 20 mg/dL (7-30); Creatinine* 1.1 mg/dL (0.5-1.5); Estimated Glomerular Filt Rate 72 ml/min
[2025-07-18 14:25] LABS: Anion Gap 6 mEq/L (7-15); Calcium* 9.5 mg/dL (8.4-10.6); Carbon Dioxide* 30 mmol/L (20-32); Glucose* 106 mg/dL (60-115)
== END 2025-07-18 12:00 | disposition home or self-care (01) ==
LOC: NPINS 12:00
PROVIDERS: PCP Family Medicine; Visit Provider Internal Medicine Clinical Cardiac Electrophysiology
DX: Z01.818 Encounter for other preprocedural examination (principal)
CPT/HCPCS: 80048; 85027